=== PATIENT | male | born 1950 | race Caucasian/White ===

== ENCOUNTER → 2021-04-11 15:23 | Outpatient (BNVA) | payer OTHER, SELFPAY | PROVIDERS: PCP Internal Medicine; Visit Provider Nurse Practitioner Family ==

== ENCOUNTER 2021-10-19 08:50 | Outpatient (REF) | payer OTHER, SELFPAY ==
[2021-10-19 09:10] LABS: MANUAL DIFF FLAG NO
[2021-10-19 09:37] LABS: Basophils Absolute Auto 0.1 X10*3/uL (0.0-0.2); Basophils Percent Auto 0.9 % (0-2); Eosinophils Absolute Auto 0.6 X10*3/uL (0.0-0.4); Eosinophils Percent Auto 8.6 % (0-4); Hematocrit 41.3 % (42.0-52.0); Hemoglobin 14.3 g/dl (14.0-18.0); Imm Gran Abs Auto 0.02 X10*3/uL (0.00-0.03); Imm Gran Pct Auto 0.3 % (0.0-0.4); Lymphocytes Absolute Auto 1.4 X10*3/uL (1.2-4.9); Lymphocytes Percent Auto 19.8 % (20-40); Mean Corpuscular HGB Conc 34.6 g/dl (31.0-36.0); Mean Corpuscular Hemoglobin 29.2 pg (27.0-33.0); Mean Corpuscular Volume 84.3 fL (80.0-98.0); Mean Platelet Volume 9.1 fL (9.4-12.4); Monocytes Absolute Auto 1.1 X10*3/uL (0.1-1.2); Monocytes Percent Auto 15.4 % (2-11); Neutrophils Absolute Auto 3.8 x10*3/uL (2.0-8.3); Platelet Count 213 X10*3/uL (160-400); Red Cell Distribution Width 13.4 % (11.0-16.0); White Blood Count 6.8 X10*3/uL (4.8-10.8)
[2021-10-19 10:10] LABS: C Reactive Protein 0.09 mg/dL (< or = 0.50); Estimated Glomerular Filt Rate 53
[2021-10-19 10:26] LABS: Erythrocyte Sedimentation Rate 6 MM/HR (0-15)
[2021-10-24 13:32] LABS: Vitamin D 25-OH, D2 <4 ng/mL; Vitamin D 25-OH, D3 72 ng/mL; Vitamin D 25-OH, Total 72 ng/mL (30-100)
== END 2021-10-19 08:51 | disposition home or self-care (01) ==
LOC: HO.LAB 08:50
PROVIDERS: Visit Provider Internal Medicine Rheumatology
DX: M19.90 Unspecified osteoarthritis, unspecified site (principal); M85.80 Other specified disorders of bone density and structure, unspecified site; Z79.899 Other long term (current) drug therapy
CPT/HCPCS: 36415; 82306; 82565; 85025; 85652; 86140

== ENCOUNTER → 2022-06-25 07:48 | Outpatient (BNVA) | payer OTHER, SELFPAY | PROVIDERS: PCP Internal Medicine; Visit Provider Internal Medicine Rheumatology | DX: Z13.89 Encounter for screening for other disorder (principal) ==

== ENCOUNTER 2022-06-25 09:22 | Outpatient (REF) | payer OTHER, SELFPAY ==
[2022-06-25 10:25] LABS: MANUAL DIFF FLAG NO
[2022-06-25 10:50] LABS: Basophils Absolute Auto 0.1 X10*3/uL (0.0-0.2); Basophils Percent Auto 1.4 % (0-2); Eosinophils Absolute Auto 0.3 X10*3/uL (0.0-0.4); Eosinophils Percent Auto 5.5 % (0-4); Hematocrit 41.9 % (42.0-52.0); Hemoglobin 14.5 g/dl (14.0-18.0); Imm Gran Abs Auto 0.03 X10*3/uL (0.00-0.03); Imm Gran Pct Auto 0.5 % (0.0-0.4); Lymphocytes Absolute Auto 1.3 X10*3/uL (1.2-4.9); Lymphocytes Percent Auto 22.2 % (20-40); Mean Corpuscular HGB Conc 34.6 g/dl (31.0-36.0); Mean Corpuscular Hemoglobin 28.6 pg (27.0-33.0); Mean Corpuscular Volume 82.6 fL (80.0-98.0); Mean Platelet Volume 9.5 fL (9.4-12.4); Monocytes Absolute Auto 0.8 X10*3/uL (0.1-1.2); Monocytes Percent Auto 14.9 % (2-11); Neutrophils Absolute Auto 3.1 x10*3/uL (2.0-8.3); Neutrophils Percent Auto 55.5 % (45-73); Platelet Count 248 X10*3/uL (160-400); Red Blood Count 5.07 X10*6/uL (4.60-5.80); Red Cell Distribution Width 13.3 % (11.0-16.0); White Blood Count 5.6 X10*3/uL (4.8-10.8)
[2022-06-25 11:29] LABS: Alanine Aminotransferase 16 U/L (0-40); Albumin Level 4.1 g/dL (3.5-5.0); Alkaline Phosphatase 80 U/L (39-117); Anion Gap 12 (12-20); Aspartate Amino Transferase 17 U/L (5-37); Bilirubin Total 0.6 mg/dL (0.0-1.0); Blood Urea Nitrogen 19 mg/dL (9-16); C Reactive Protein 0.31 mg/dL (< or = 0.50); Carbon Dioxide 24 mmol/L (22-29); Chloride 109 mmol/L (96-108); Estimated Glomerular Filt Rate > 60; Glucose Random 109 mg/dL (60-115); Potassium 4.4 mmol/L (3.3-5.1); Sodium 141 mmol/L (135-145); Total Protein 6.5 g/dL (6.5-8.0)
[2022-06-25 11:31] LABS: Erythrocyte Sedimentation Rate 7 MM/HR (0-15)
[2022-06-25 11:32] LABS: TSH reflex Free T4 1.66 uIU/mL (0.32-4.0)
[2022-06-30 16:24] LABS: Vitamin D 25-OH, D2 <4 ng/mL; Vitamin D 25-OH, D3 78 ng/mL; Vitamin D 25-OH, Total 78 ng/mL (30-100)
== END 2022-06-25 09:23 | disposition home or self-care (01) ==
LOC: HO.10HDL 09:22
PROVIDERS: Visit Provider Internal Medicine Rheumatology
DX: M85.80 Other specified disorders of bone density and structure, unspecified site (principal); M79.7 Fibromyalgia; Z79.899 Other long term (current) drug therapy
CPT/HCPCS: 36415; 80053; 82306; 84443; 85025; 85652; 86140

== ENCOUNTER 2022-11-22 08:39 | Outpatient (AMB) | payer OTHER, SELFPAY ==
[2022-11-22 08:52] VITALS: BP 114/62; PULSE 61; TEMP 36.6; O2SAT 95; BMI 29.6
--- NOTE | 2022-11-22 08:52 | MHC.OFFVIS ---
Intake Vital Signs 11/22/22 08:52 Height 5 ft 6 in Weight 183 lb 10.321 oz BMI 29.6 BP 114/62 Blood Pressure Location Rt brachial Position Sitting Pulse 61 Pulse Source Pulse Oximeter Temp 97.9 F Temp Source Skin Pulse Oximetry (%) 95 Intake Visit Reasons: oa/fm Intake Note: Pt seen today for OA/FM follow up. C/o pain in all joints and muscles. Has been using diclofenac for hands and it helps. 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 Education Instructor Required: No Accompanied by: Self / Same As Patient Allergies meperidine [From Demerol] Allergy (Severe, Verified 11/22/22 08:56) heart stopped bupropion Adverse Reaction (Severe, Verified 11/22/22 08:56) MS changes Medication List - Last Reconciled 11/22/22 by Valerio Vallejo MD acetaminophen 1,000 mg PO Q6H PRN alendronate 70 mg PO QWEEK amlodipine 10 mg PO DAILY gabapentin 100 mg PO TID prednisone 2.5 mg PO DAILY tizanidine 2 mg PO BEDTIME PRN HPI HPI Comments History of Present Illness Details The patient returns for evaluation of his DISH, PMR, osteopenia and fibromyalgia. His overall muscle pains continue, sometimes accompanied but muscle cramps in the legs at night. He remains on prednisone 2.5 mg daily, alendronate 70 mg once a week, gabapentin 100mg in AM and 200 mg in evening, and acetaminophen 1,000 mg TID prn. He was taking some tizanidine at night but ran out. That seemed to help with the muscle cramps. He remains active in a physical job. [facility] Medical History (Updated 02/15/22 @ 08:47 by Valerio Vallejo MD) Carpal tunnel syndrome on both sides CKD (chronic kidney disease) stage 3, GFR 30-59 ml/min DISH (diffuse idiopathic skeletal hyperostosis) Fibromyalgia Hypertension Inflammatory arthritis care home use of drug Osteopenia Social History Household Members: Spouse Housing: House Are you a primary director day care center to a significant other at home: No Do you presently have visiting nurse or other home services: No 75 years or older and lives alone: No Alcohol intake: never Patient Tobacco Use Status: Former Tobacco user e-Cigarette/Vaping Use: Never Used service: No Current occupational status: employed 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 Negative for appetite change, weight change, fever, chills, malaise Eyes Details: Negative for vision change, dry eyes,headaches and dizziness Card Details: Negative chest pain, edema and syncope Resp Details: Negative for SOB, cough and wheezing GI Details: Negative indigestion/heartburn, nausea, abdominal pain, bowel changes, diarrhea, constipation and bloody stool. Psych Details: Negative for anxiety, depression and stress Tim/Lymph Details: Negative for excessive bruising or bleeding. Physical Exam Vital Signs: Last Vital Signs Temp 97.9 F 11/22/22 08:52 Pulse 61 11/22/22 08:52 BP 114/62 11/22/22 08:52 Pulse Ox 95 11/22/22 08:52 BMI result Body Mass Index 29.6 APPEARANCE: Patient in no acute distress EYES no redness, pupils equal and reactive to light, eyelids normal. No temporal artery tenderness, redness or swelling EXTREMITIES:? No edema, no calf tenderness, normal peripheral pulses. JOINT EXAM: Cervical Spine:.? Lateral flexion slightly painful at 10 degrees with some limitation at that point.? Lateral rotation limited at 45 degrees with some pain.? Some posterior cervical muscle at tenderness. Thoracic Spine:.? No scoliosis.? No tenderness on palpation. Lumbar Spine:.? Alignment normal.? Full range of motion with mild pain at flexion to 70 degrees.? No tenderness.? Straight leg raising is negative. Chest Wall:.? No tenderness, swelling, increased warmth or erythema. Hands:.? Right:? Slight tenderness in all the MCP joints but no swelling.? Mild bony enlargement at the thumb IP, PIP, and DIP joints.? All of these points have slight tenderness.? No flexor tendon triggering, thenar atrophy or sensory loss.? Left:? Slightly tender bony enlargement at the thumb IP, PIP and the IP joints.? The MCPs are also tender but do not have any swelling.? No soft tissue swelling, flexor tendon triggering, thenar atrophy or sensory loss.. Wrists: ? Slight discomfort with flexion and? extension at 75 degrees with some minimal tenderness but no swelling, increased warmth or erythema. Elbows:. Normal pain-free range of motion without tenderness, swelling, increased warmth or erythema. Shoulders:.?? Full range of motion with mild discomfort at the extremes of motion.? Some mild anterior tenderness without adenopathy, abductor, weakness, swelling, increased warmth or erythema. Hips:.? Full range of motion with some buttock pain felt at the extremes of internal and external rotation.? No groin pain with motion. Hip bursa:.? Mild trochanteric tenderness. Knees:.?? Normal pain-free range of motion with mild patellofemoral crepitus.? There is some medial tenderness on the left without effusion.? The right knee has no tenderness, swelling, increased warmth or erythema.? Ankles:.? Normal pain-free range of motion without tenderness, swelling, increased warmth or erythema. Feet:? There is mild tenderness in the instep and in all the MTPs.? There is slight bony enlargement at the 1st MTP with some minimal hallux valgus deformity.? No soft tissue swelling, redness or warmth. Tender points:? Mild tenderness to digital palpation at the trapezius, second rib, lateral epicondyle, knees, greater trochanter area bilaterally. 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 Restarted 09/2021 11.2% increase in bone density measured at the lumbar spine. 07/2017 DEXA: 3.6% increase in bone density is measured at the left hip compared to 09/15/2012. 10/2021: bone density dropped again, alendronate restarted Code(s): M85.80 - Other specified disorders of bone density and structure, unspecified site (4) DISH (diffuse idiopathic skeletal hyperostosis): Comment: Seen on T spine films Code(s): M48.10 - Ankylosing hyperostosis [[place]], site unspecified (5) Inflammatory arthritis: Comment: Wrist, shoulder, back pains; no joint swelling; feels better on low dose prednisone seronegative - ?PMR Code(s): M19.90 - Unspecified osteoarthritis, unspecified site Plan He seems about the same. PMR symptoms probably are suppressed and the remainder of the pains are from DISH related OA and fibromyalgia. In June the ESR and CRP were.We normal. There is some OA in the hands. He tolerates the alendronate for the osteopenia. I will renew the tizanidine. Other meds will continue as above. We will schedule a follow up in 5 months. Medications: Changed From tizanidine start with 1/2 pill as medication can be sedating 2 mg PO BEDTIME PRN 30 tabs 0RF muscle spasticity M79.7 - Fibromyalgia To tizanidine 2 mg PO BEDTIME PRN 30 tabs 3RF muscle spasticity M79.7 - Fibromyalgia Coding Level of Care Code Est Pt Level 3 (40124) Diagnoses care home use of drug Z79.899 Fibromyalgia M79.7 Osteopenia M85.80 DISH (diffuse idiopathic skeletal hyperostosis) M48.10 Inflammatory arthritis M19.90
== END 2022-11-22 09:27 | disposition home or self-care (01) ==
PROVIDERS: PCP Internal Medicine; Visit Provider Internal Medicine Rheumatology
DX: Z79.899 Other long term (current) drug therapy (principal); M79.7 Fibromyalgia; M85.80 Other specified disorders of bone density and structure, unspecified site; M48.10 Ankylosing hyperostosis [Forestier], site unspecified; M19.90 Unspecified osteoarthritis, unspecified site
CPT/HCPCS: 99213

== ENCOUNTER → 2022-11-22 08:39 | Outpatient (BNVA) | payer OTHER, SELFPAY | PROVIDERS: PCP Internal Medicine; Visit Provider Internal Medicine Rheumatology ==

== ENCOUNTER 2023-03-27 07:51 | Outpatient (REF) | payer OTHER, SELFPAY ==
[2023-03-27 11:14] LABS: MANUAL DIFF FLAG NO
[2023-03-27 11:57] LABS: C Reactive Protein 0.62 mg/dL (< or = 0.50)
[2023-03-27 12:02] LABS: Basophils Absolute Auto 0.1 X10*3/uL (0.0-0.2); Basophils Percent Auto 0.7 % (0-2); Eosinophils Absolute Auto 0.5 X10*3/uL (0.0-0.4); Eosinophils Percent Auto 6.7 % (0-4); Hematocrit 41.8 % (42.0-52.0); Hemoglobin 14.3 g/dl (14.0-18.0); Imm Gran Abs Auto 0.02 X10*3/uL (0.00-0.03); Imm Gran Pct Auto 0.3 % (0.0-0.4); Lymphocytes Absolute Auto 1.3 X10*3/uL (1.2-4.9); Mean Corpuscular HGB Conc 34.2 g/dl (31.0-36.0); Mean Corpuscular Hemoglobin 28.9 pg (27.0-33.0); Mean Corpuscular Volume 84.4 fL (80.0-98.0); Mean Platelet Volume 9.5 fL (9.4-12.4); Monocytes Percent Auto 14.3 % (2-11); Neutrophils Absolute Auto 4.2 x10*3/uL (2.0-8.3); Platelet Count 256 X10*3/uL (160-400); Red Blood Count 4.95 X10*6/uL (4.60-5.80); Red Cell Distribution Width 13.5 % (11.0-16.0); White Blood Count 7.1 X10*3/uL (4.8-10.8)
[2023-03-27 12:35] LABS: Erythrocyte Sedimentation Rate 6 MM/HR (0-15)
== END 2023-03-27 07:52 | disposition home or self-care (01) ==
LOC: HO.HMGCLDS 07:51
PROVIDERS: Visit Provider Internal Medicine Rheumatology
DX: M19.90 Unspecified osteoarthritis, unspecified site (principal); Z79.899 Other long term (current) drug therapy
CPT/HCPCS: 36415; 85025; 85652; 86140

== ENCOUNTER 2023-04-25 09:21 | Outpatient (AMB) | payer OTHER, SELFPAY ==
[2023-04-25 09:39] VITALS: BP 140/72; PULSE 54; O2SAT 96; BMI 29.4
--- NOTE | 2023-04-25 09:39 | MHC.OFFVIS ---
Intake Vital Signs 04/25/23 09:39 Height 5 ft 6 in Weight 182 lb 1.629 oz BMI 29.4 BP 140/72 H Blood Pressure Location Lt brachial Position Sitting Pulse 54 Pulse Source Pulse Oximeter Pulse Oximetry (%) 96 Oxygen Delivery Method Room Air Intake Visit Reasons: DISH/PMR Intake Note: Patient present today for DISH/PMR follow up visit. Hearing Aid Assistant Required: No Accompanied by: Self / Same As Patient Allergies meperidine [From Demerol] Allergy (Severe, Verified 04/25/23 09:43) heart stopped bupropion Adverse Reaction (Severe, Verified 04/25/23 09:43) MS changes Medication List - Last Reconciled 04/25/23 by Valerio Vallejo MD acetaminophen 1,000 mg PO Q6H PRN alendronate 70 mg PO QWEEK amlodipine 10 mg PO DAILY cholecalciferol (vitamin D3) 250 mcg PO QWEEK gabapentin 100 mg PO TID prednisone 5 mg (2 x 2.5 mg) PO DAILY tizanidine 2 mg PO BEDTIME PRN HPI HPI Comments History of Present Illness Details The patient returns for evaluation of his PMR, fibromyalgia, and DISH. He had called us last month with the flare-up of pains and numbness in his hands. The numbness seems to radiate from the hands of proximally to the shoulder areas. He had been on 2.5 mg daily prednisone. We increased it to 2.5 b.i.d. and the symptoms improved. He remains on gabapentin taking 100 mg the morning and 200 mg at night. Higher daytime doses interferes with his functioning because of sedation. He does have some tizanidine he occasionally uses at night. He is also on acetaminophen 1 g a couple times a day if needed. He takes alendronate 70 mg once a week for osteoporosis. He has been told in the past he is carpal tunnel syndrome. He does not feel like he can take time off from work or care of his in order to get surgery. He has some element of CKD so we avoid NSAIDs and him. 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 CKD (chronic kidney disease) stage 3, GFR 30-59 ml/min Hypertension Fibromyalgia Osteopenia DISH (diffuse idiopathic skeletal hyperostosis) Carpal tunnel syndrome on both sides Inflammatory arthritis Social History Household Members: Spouse Housing: House Are you a primary managed care provider to a significant other at home: No Do you presently have visiting nurse or other home services: No 75 years or older and lives alone: No Alcohol intake: never Patient Tobacco Use Status: Former Tobacco user e-Cigarette/Vaping Use: Never Used service: No Current occupational status: employed 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 Card Details: He was missing his amlodipine for while but now has refills. Negative chest pain, edema and syncope Resp Details: Negative for SOB, cough and wheezing GI Details: Negative indigestion/heartburn, nausea, abdominal pain, bowel changes, diarrhea, constipation and bloody stool. Neuro Details: Negative for epilepsy, palsy, stroke, changes in speech, tingling and weakness Endo Details: Negative for polyuria and polydypsia Tim/Lymph Details: Negative for excessive bruising or bleeding. Physical Exam Vital Signs: Last Vital Signs Pulse 54 04/25/23 09:39 BP 140/72 H 04/25/23 09:39 Pulse Ox 96 04/25/23 09:39 Oxygen Delivery Method Room Air 04/25/23 09:39 BMI result Body Mass Index 29.4 APPEARANCE: Patient in no acute distress EYES no redness, pupils equal and reactive to light, eyelids normal EYES no redness, pupils equal and reactive to light, eyelids normal. No temporal artery tenderness, redness or swelling EXTREMITIES:? No edema, no calf tenderness, normal peripheral pulses. JOINT EXAM: Cervical Spine:.? Lateral flexion slightly painful at 10 degrees with some limitation at that point.? Lateral rotation limited at 45 degrees with some pain.? Some posterior cervical muscle at tenderness. Thoracic Spine:.? No scoliosis.? No tenderness on palpation. Lumbar Spine:.? Alignment normal.? Full range of motion with mild pain at flexion to 70 degrees.? No tenderness.? Straight leg raising is negative. Chest Wall:.? No tenderness, swelling, increased warmth or erythema. Hands:.? Right:? No tenderness or swelling in the MCP joints.? Mild bony enlargement at the thumb IP, PIP, and DIP joints.? All of these points have slight tenderness.? No flexor tendon triggering, thenar atrophy or sensory loss.? Left:? Slightly tender bony enlargement at the thumb IP, PIP and the IP joints.? The MCPs are are not tender or swollen. Other areas in the hand have no soft tissue swelling, flexor tendon triggering, thenar atrophy or sensory loss.. Wrists: ? Slight discomfort with flexion and? extension at 75 degrees with some minimal tenderness but no swelling, increased warmth or erythema. Negative Phalen's and Tinel signs. Elbows:. Normal pain-free range of motion without tenderness, swelling, increased warmth or erythema. Shoulders:.?? Full range of motion with mild discomfort at the extremes of motion.? Some mild anterior tenderness without adenopathy, abductor, weakness, swelling, increased warmth or erythema. Hips:.? Full range of motion with some buttock pain felt at the extremes of internal and external rotation.? No groin pain with motion. Hip bursa:.? Mild trochanteric tenderness. Knees:.?? Normal pain-free range of motion with mild patellofemoral crepitus.? There is some medial tenderness on the left without effusion.? The right knee has no tenderness, swelling, increased warmth or erythema.? Ankles:.? Normal pain-free range of motion without tenderness, swelling, increased warmth or erythema. Feet:? There is mild tenderness in the instep and in all the MTPs.? There is slight bony enlargement at the 1st MTP with some minimal hallux valgus deformity.? No soft tissue swelling, redness or warmth. Tender points:? Mild tenderness to digital palpation at the trapezius, second rib, lateral epicondyle, knees, greater trochanter area bilaterally. Results Reviewed Results Reviewed: Laboratory Tests 03/27/23 07:59 WBC 7.1 Hgb 14.3 ESR 6 C-Reactive Protein 0.62 H Assessment & Plan Assessment & Plan (1) Fibromyalgia: Code(s): M79.7 - Fibromyalgia (2) Osteopenia: Comment: October 2012 BMD FRAX estimate: 32% for fracture, 3.5% for hip fracture over 10 years Alendronate started 10/23, taken through October 2018. Restarted 09/2021 11.2% increase in bone density measured at the lumbar spine. 07/2017 DEXA: 3.6% increase in bone density is measured at the left hip compared to 09/15/2012. 10/2021: bone density dropped again, alendronate restarted Code(s): M85.80 - Other specified disorders of bone density and structure, unspecified site (3) Carpal tunnel syndrome on both sides: Comment: EMG/NCT 02/25: severe on right, moderate to severe on left Declined surgery Code(s): G56.03 - Carpal tunnel syndrome, bilateral upper limbs (4) Inflammatory arthritis: Comment: Wrist, shoulder, back pains; no joint swelling; feels better on low dose prednisone seronegative - ?PMR Code(s): M19.90 - Unspecified osteoarthritis, unspecified site (5) DISH (diffuse idiopathic skeletal hyperostosis): Comment: Seen on T spine films Code(s): M48.10 - Ankylosing hyperostosis [[place]], site unspecified Plan He had some flare-up of pain mostly in the hands and shoulders. This was accompanied by paresthesias so it is suggestive that he might have exacerbate his carpal tunnel symptoms. We again discussed possible surgical treatment for this but he declined. He seems more comfortable with the slightly higher prednisone dose so he probably does have some degree of PMR or another type of inflammatory arthritis. Prominent symptoms in the back and neck in the past as well as radiographic changes work more consistent with DISH. He will continue with the gabapentin. Because of his osteopenia he needs to stay on the alendronate given his reliance on the prednisone. A follow-up in 5 months will be arranged. Coding Level of Care Code Est Pt Level 4 (41993) Diagnoses Fibromyalgia M79.7 Osteopenia M85.80 Carpal tunnel syndrome on both sides G56.03 Inflammatory arthritis M19.90 DISH (diffuse idiopathic skeletal hyperostosis) M48.10
== END 2023-04-25 10:28 | disposition home or self-care (01) ==
PROVIDERS: PCP Internal Medicine; Visit Provider Internal Medicine Rheumatology
DX: M79.7 Fibromyalgia (principal); M85.80 Other specified disorders of bone density and structure, unspecified site; G56.03 Carpal tunnel syndrome, bilateral upper limbs; M19.90 Unspecified osteoarthritis, unspecified site; M48.10 Ankylosing hyperostosis [Forestier], site unspecified
CPT/HCPCS: 99214

== ENCOUNTER → 2023-04-25 09:21 | Outpatient (BNVA) | payer OTHER, SELFPAY | PROVIDERS: PCP Internal Medicine; Visit Provider Internal Medicine Rheumatology ==

== ENCOUNTER 2023-09-24 08:24 | Outpatient (AMB) | payer MEDICARE, SELFPAY ==
[2023-09-24 08:37] VITALS: BP 120/64; PULSE 59; O2SAT 98; BMI 27.1
--- NOTE | 2023-09-24 08:37 | A.OFFVIS_ITS ---
Vital Signs 09/24/23 08:37 Height 5 ft 6 in Weight 167 lb 15.876 oz BMI 27.1 BP 120/64 Blood Pressure Location Rt brachial Position Sitting Pulse 59 Pulse Source Pulse Oximeter Pulse Oximetry (%) 98 Oxygen Delivery Method Room Air Intake Visit Reasons: PMR/DISH/LVM Intake Note: Patient last seen by Dr Vallejo 04/25/23 presents today for follow up. He reports left knee pain and swelling. Works FT at a [employer] line, wears brace for support. Reports flare up since last visit, was seen at urgent care in [place] and [facility]. Xrays were done and told he had moderate arthritis, currently using prednisone 2.5mg bid Manager Research Required: No Accompanied by: Self / Same As Patient Allergies meperidine [From Demerol] Allergy (Severe, Verified 09/24/23 08:48) heart stopped bupropion Adverse Reaction (Severe, Verified 09/24/23 08:48) MS changes Medication List - Last Reconciled 09/24/23 by Ozzie Anguiano MD acetaminophen 1,000 mg PO Q6H PRN alendronate 70 mg PO QWEEK amlodipine 10 mg PO DAILY cholecalciferol (vitamin D3) 250 mcg PO QWEEK gabapentin 100 mg PO TID prednisone 2.5 mg PO BID tizanidine 2 mg PO BEDTIME PRN HPI Comments Details: 73-year-old male with PMR, fibromyalgia and DISH returns for follow-up. States that over the last 2 months or so he has been having a flare-up. Cup 1 day 2 months ago with left knee pain and swelling. Without any preceding trauma. He went to urgent care who prescribed him a brace he then followed up with an orthopedist, he had a steroid injection which was at least 50% helpful. The left knee pain has improved but he continues to use the brace. Continues to have pain in his hands, wrists, shoulders and ankles. Recently he injured his right wrist while working on his 's car. He remains on prednisone 2.5 mg Twice daily. States that he has not consistent with taking the alendronate. Most recent history by Dr. Vallejo 04/2023: The patient returns for evaluation of his PMR, fibromyalgia, and DISH. He had called us last month with the flare-up of pains and numbness in his hands. The numbness seems to radiate from the hands of proximally to the shoulder areas. He had been on 2.5 mg daily prednisone. We increased it to 2.5 b.i.d. and the symptoms improved. He remains on gabapentin taking 100 mg the morning and 200 mg at night. Higher daytime doses interferes with his functioning because of sedation. He does have some tizanidine he occasionally uses at night. He is also on acetaminophen 1 g a couple times a day if needed. He takes alendronate 70 mg once a week for osteoporosis. He has been told in the past he is carpal tunnel syndrome. He does not feel like he can take time off from work or care of his in order to get surgery. He has some element of CKD so we avoid NSAIDs and him. 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 CKD (chronic kidney disease) stage 3, GFR 30-59 ml/min Hypertension Fibromyalgia Osteopenia DISH (diffuse idiopathic skeletal hyperostosis) Carpal tunnel syndrome on both sides Inflammatory arthritis Social History Household Members: Spouse Housing: House Are you a primary care director to a significant other at home: No Do you presently have visiting nurse or other home services: No 75 years or older and lives alone: No Alcohol intake: never Patient Tobacco Use Status: Former Tobacco user e-Cigarette/Vaping Use: Never Used service: No Current occupational status: employed 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[place] [facility] [place] arthralgias, Reports joint swelling and Reports stiffness Skin/Breast Reports wounds Physical Exam Vital Signs: Last Vital Signs Pulse 59 09/24/23 08:37 BP 120/64 09/24/23 08:37 Pulse Ox 98 09/24/23 08:37 Oxygen Delivery Method Room Air 09/24/23 08:37 BMI result Body Mass Index 27.1 Const General: cooperative, healthy appearing and comfortable Nutritional Appearance: overweight Orientation/consciousness: patient oriented x3 Limitations: no limitations HEENT Head: Yes normocephalic and Yes atraumatic Resp Effort & Inspection: normal respiratory effort and able to speak in complete sentences Auscultation: clear to auscultation bilaterally Cardio Rate: regular rate Rhythm: regular rhythm Neuro General: patient oriented x3 Extrem Other: Right hand wrapped in a bandage Kyphosis Hamzah test 10 to 12.5 cm Almost normal lateral flexion test Normal range of motion of neck Significant osteoarthritic changes of both hands Left wrist pain with full extension No elbow pain with full range of motion bilaterally Rotator cuff provocative maneuvers bilaterally Negative Speed's test bilaterally Negative straight leg raise test bilaterally Equivocal ASHLEY test on the right Bilateral ankle tenderness without significant swelling Assessment & Plan Assessment & Plan (1) Inflammatory arthritis: Comment: Wrist, shoulder, back pains; no joint swelling; feels better on low dose prednisone seronegative - ?PMR diagnosed around 2011 Code(s): M19.90 - Unspecified osteoarthritis, unspecified site Category: Medical Plan: This is a 73-year-old male with suspected PMR with possible small joint involvement as well as DISH and fibromyalgia who presents for follow-up. This is his 1st visit with me. He used to follow-up with Dr. Vallejo. He remains on prednisone 2.5 mg Twice daily. Continues to have intermittent flare-ups of joint pain and swelling. Most recently had left knee pain and swelling which was injected by Orthopedics with improvement. For now continue prednisone 2.5 mg Twice daily Will recheck comprehensive serology before next visit in 4 months. Check x-rays of involved joints (2) Osteopenia: Comment: October 2012 BMD FRAX estimate: 32% for fracture, 3.5% for hip fracture over 10 years Alendronate started 10/23, taken through October 2018. Restarted 09/2021 11.2% increase in bone density measured at the lumbar spine. 07/2017 DEXA: 3.6% increase in bone density is measured at the left hip compared to 09/15/2012. 10/2021: bone density dropped again, alendronate restarted Code(s): M85.80 - Other specified disorders of bone density and structure, unspecified site Category: Medical Plan: Not consistently compliant with alendronate. Will recheck a bone density scan Before next visit in 4 months (3) Fibromyalgia: Code(s): M79.7 - Fibromyalgia Category: Medical Plan I spent 36 minutes reviewing patient's chart, evaluating patient, ordering diagnostic workup, counseling patient and documenting in the chart Orders: Orders Complete Blood Count Auto Diff Today M32.9 - Systemic lupus erythematosus, unspecified Hepatitis A,B,C Profile Today Z11.59 - Encounter for screening for other viral diseases T Spot TB Today Z11.7 - Encounter for testing for latent tuberculosis infection Anti DNA DS Antibody Today M32.9 - Systemic lupus erythematosus, unspecified DNA Double Stranded-Crithidia Today M32.9 - Systemic lupus erythematosus, unspecified Protein Creatinine Ratio, Ur Today M32.9 - Systemic lupus erythematosus, unspecified UA w Microscopic Today M32.9 - Systemic lupus erythematosus, unspecified Rheumatoid Factor 4 Months M1.90 - Unspecified osteoarthritis, unspecified site HLA B27 4 Months M45.9 - Ankylosing spondylitis of unspecified sites in spine XR hand wrist RT 4 Months M1.90 - Unspecified osteoarthritis, unspecified site XR ankle RT min 3V 4 Months M1.90 - Unspecified osteoarthritis, unspecified site Comprehensive Met. Panel Today M32.9 - Systemic lupus erythematosus, unspecified C Reactive Protein Today M32.9 - Systemic lupus erythematosus, unspecified Erythrocyte Sedimentation Rate Today M32.9 - Systemic lupus erythematosus, unspecified Immunofixation Pnl, Serum Today M32.9 - Systemic lupus erythematosus, unspecified DUNIA Reflex Titer and Pattern Today M32.9 - Systemic lupus erythematosus, unsp ecified Anti Extractable Nuclear Ag Today M32.9 - Systemic lupus erythematosus, unspecified Complement C3 Today M32.9 - Systemic lupus erythematosus, unspecified Complement C4 Today M32.9 - Systemic lupus erythematosus, unspecified Sjogren's Antibodies Today M32.9 - Systemic lupus erythematosus, unspecified Cyclic Citrullinated Peptide 4 Months M1.90 - Unspecified osteoarthritis, unspecified site XR thoracic spine 3V 4 Months M1.90 - Unspecified osteoarthritis, unspecified site XR lumbar spine 4V min 4 Months M1.90 - Unspecified osteoarthritis, unspecified site XR sacroiliac joint min 3V 4 Months M1.90 - Unspecified osteoarthritis, unspecified site XR hand wrist LT 4 Months M1. - Unspecified osteoarthritis, unspecified site XR ankle LT min 3V 4 Months M1. - Unspecified osteoarthritis, unspecified site XR DEXA axial skeleton 4 Months M85.80 - Other specified disorders of bone density and structure, unspecified site Coding Level of Care Code Est Pt Level 4 (48029) Diagnoses Inflammatory arthritis Osteopenia M85.80 Fibromyalgia M79.7
== END 2023-09-24 09:10 | disposition home or self-care (01) ==
LOC: HO.RHE 08:24
PROVIDERS: PCP Internal Medicine; Visit Provider Student in an Organized Health Care Education/Training Program
DX: M19.90 Unspecified osteoarthritis, unspecified site (principal); M85.80 Other specified disorders of bone density and structure, unspecified site; M79.7 Fibromyalgia
CPT/HCPCS: 99214

== ENCOUNTER → 2023-09-24 08:24 | Outpatient (BNVA) | payer MEDICARE, SELFPAY | PROVIDERS: PCP Internal Medicine; Visit Provider Student in an Organized Health Care Education/Training Program | DX: M19.90 Unspecified osteoarthritis, unspecified site (principal); M85.80 Other specified disorders of bone density and structure, unspecified site; M79.7 Fibromyalgia; Z79.52 Long term (current) use of systemic steroids | CPT/HCPCS: 99212 ==

== ENCOUNTER 2024-01-16 08:44 | Outpatient (REF) | payer MEDICARE, SELFPAY ==
--- NOTE | ~2024-01-16 | MM_ITS ---
EXAMINATION: BONE DENSITOMETRY CLINICAL INDICATION: Other specified disorders of bone density and structure, unspecified site. COMPARISON: This is the patient's baseline examination. TECHNIQUE: Using a [employer] DXA System (software version: 13.1) manufactured by [employer], dual-energy x-ray absorptiometry was performed of the lumbar spine and left hip. The images are of good technical quality. Summary results are attached. FINDINGS: AP SPINE L2-L3 (excluding L1 and L4): The data of L1-L4 has been changed to exclude the L1 and L4 vertebral bodies, because degenerative sclerosis at these levels may cause overestimation of lumbar spine density. BMD 1.178 g/cm2, Z-score 0.0, T-score -0.5, normal. LEFT FEMUR, NECK: BMD 0.878 g/cm2, Z-score -0.2, T-score -1.5, osteopenia. LEFT FEMUR, TOTAL: BMD 0.928 g/cm2, Z-score -0.4, T-score -1.2, osteopenia. IDENTIFIED RISK FACTORS: History of adult fracture. Osteoporosis. Renal disease. Height loss. Low calcium intake. Parental hip fracture. Chronic glucocorticoids. HISTORY OF FRACTURE: Other (ribs). MEDICATIONS: Vitamin D. Bisphosphonates. MM/XR DEXA axial skeleton IMPRESSION: 1. DIAGNOSIS: Osteopenia based on the lowest T-score value of -1.5 in the femoral neck applying World Health Organization criteria. 2. 10-YEAR FRACTURE RISK PREDICTION, FRAX: Not performed in this patient on estrogen or bone building treatments. 3. Treatment Recommendations: NOF guidelines recommend consideration for treatment in postmenopausal women and men age 50 and older presenting with the following: -A hip or vertebral (clinical or morphometric) fracture. -T-score less than or equal to -2.5 at the femoral neck or spine after appropriate evaluation to exclude secondary causes. -Low bone mass at the hip or spine and a 10-year fracture probability by FRAX of greater than or equal to 3% for hip fracture or greater than or equal to 20% for major osteoporotic fracture based on the [place] adapted WHO algorithm. 4. Other Recommendations: All treatment decisions require clinical judgment and consideration of individual patient factors, including patient preferences, comorbidities, previous drug use, risk factors not captured in the FRAX model (e.g. frailty, falls, vitamin D deficiency, increased bone turnover, interval significant decline in bone density) and possible under or overestimation of fracture risk by FRAX. Additional medical evaluation for secondary cause of low bone mineral density may be appropriate. FUTURE SCAN RECOMMENDATION: People with diagnosed cases of osteoporosis or at high risk for fracture should have regular bone mineral density tests. For patients eligible for Medicare, routine testing is allowed once every 2 years. The testing frequency can be increased to one year for patients who have rapidly progressing disease, those who are receiving or discontinuing medical therapy to restore bone mass, or have additional risk factors. Electronically signed by: Carlton Pineda MD 01/22/2024 11:52 AM EDT
== END 2024-01-16 08:45 | disposition home or self-care (01) ==
LOC: HO.MAMMO 08:44
PROVIDERS: PCP Internal Medicine; Visit Provider Student in an Organized Health Care Education/Training Program
DX: Z13.820 Encounter for screening for osteoporosis (principal); M85.852 Other specified disorders of bone density and structure, left thigh
CPT/HCPCS: 77080

== ENCOUNTER 2024-01-22 08:24 | Outpatient (AMB) | payer MEDICARE, MEDICAID, SELFPAY ==
[2024-01-22 08:28] VITALS: BP 118/62; PULSE 68; O2SAT 100; BMI 26.4
--- NOTE | 2024-01-22 08:28 | A.OFFVIS_ITS ---
Vital Signs 01/22/24 08:28 Height 5 ft 6 in Weight 163 lb 5.8 oz BMI 26.4 BP 118/62 Blood Pressure Location Rt brachial Pulse 68 Pulse Source Pulse Oximeter Pulse Oximetry (%) 100 Oxygen Delivery Method Room Air Intake Visit Reasons: PMR/Seroneg Intake Note: Patient last seen by Ozzie Anguiano on 09/24/23. Presents today for PMR/Seroneg follow up and labs/XR's test results. Patient did not get his labs done, bone density is not read yet. Patient states his left knee is bothering him today. Allergies meperidine [From Demerol] Allergy (Severe, Verified 01/22/24 08:32) heart stopped bupropion Adverse Reaction (Severe, Verified 09/24/23 08:48) MS changes Medication List - Last Reconciled 01/22/24 by Ozzie Anguiano MD acetaminophen 1,000 mg PO Q6H PRN alendronate 70 mg PO QWEEK amlodipine 10 mg PO DAILY cholecalciferol (vitamin D3) 250 mcg PO QWEEK gabapentin 100 mg PO TID prednisone 2.5 mg PO BID tizanidine 2 mg PO BEDTIME PRN HPI Comments Details: 73-year-old male with PMR, fibromyalgia and DISH returns for follow-up. States that he is doing about the same overall. Remains on prednisone 2.5 mg Twice daily. States that he gets intermittent left-sided lower back pain associated with cramping of his left lower extremity. This happens mostly at length. States that when he misses a prednisone dose he does feel pain and stiffness in his hands. He had the bone density scan done, it has not been read yet and did not get the blood work done Most recent history by Dr. Vallejo 04/2023: The patient returns for evaluation of his PMR, fibromyalgia, and DISH. He had called us last month with the flare-up of pains and numbness in his hands. The numbness seems to radiate from the hands of proximally to the shoulder areas. He had been on 2.5 mg daily prednisone. We increased it to 2.5 b.i.d. and the symptoms improved. He remains on gabapentin taking 100 mg the morning and 200 mg at night. Higher daytime doses interferes with his functioning because of sedation. He does have some tizanidine he occasionally uses at night. He is also on acetaminophen 1 g a couple times a day if needed. He takes alendronate 70 mg once a week for osteoporosis. He has been told in the past he is carpal tunnel syndrome. He does not feel like he can take time off from work or care of his in order to get surgery. He has some element of CKD so we avoid NSAIDs and him. [facility] Medical History assisted use of drug CKD (chronic kidney disease) stage 3, GFR 30-59 ml/min Hypertension Fibromyalgia Osteopenia DISH (diffuse idiopathic skeletal hyperostosis) Carpal tunnel syndrome on both sides Inflammatory arthritis Social History Household Members: Spouse Housing: House Are you a primary critical care specialist to a significant other at home: No Do you presently have visiting nurse or other home services: No 75 years or older and lives alone: No Alcohol intake: never Patient Tobacco Use Status: Former Tobacco user e-Cigarette/Vaping Use: Never Used service: No Current occupational status: employed 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 Review of [place] [facility] [place] back pain, Reports arthralgias and Reports stiffness Physical Exam Vital Signs: Last Vital Signs Pulse 68 01/22/24 08:28 BP 118/62 01/22/24 08:28 Pulse Ox 100 01/22/24 08:28 Oxygen Delivery Method Room Air 01/22/24 08:28 BMI result Body Mass Index 26.4 Const General: cooperative, healthy appearing and comfortable Nutritional Appearance: overweight Orientation/consciousness: patient oriented x3 Limitations: no limitations HEENT Head: Yes normocephalic and Yes atraumatic Resp Effort & Inspection: normal respiratory effort and able to speak in complete sentences Neuro General: patient oriented x3 Extrem Other: Kyphosis Hamzah test 10 to 12.5 cm Almost normal lateral flexion test Normal range of motion of neck Significant osteoarthritic changes of both hands, no swelling Left wrist pain with full extension No elbow pain with full range of motion bilaterally Negative Rotator cuff provocative maneuvers bilaterally Negative Speed's test bilaterally Negative straight leg raise test bilaterally Equivocal ASHLEY test on the right Significant bilateral knee crepitus Assessment & Plan Assessment & Plan (1) Inflammatory arthritis: Comment: Wrist, shoulder, back pains; no joint swelling; feels better on low dose prednisone seronegative - ?PMR diagnosed around 2011 Code(s): M19.90 - Unspecified osteoarthritis, unspecified site Category: Medical Plan: This is a 73-year-old male with suspected PMR with possible small joint involvement as well as DISH and fibromyalgia who presents for follow-up. This is his 2nd visit with me. He used to follow-up with Dr. Vallejo. He remains on prednisone 2.5 mg Twice daily. Continues to have intermittent flare-ups of joint pain and swelling. Last visit I had ordered comprehensive serology and x- rays to screen for better understand his condition. Patient did not do the blood work or the x-rays. Advised patient to get the requested diagnostic workup done and we will go over it next visit Follow-up in 6-7 weeks (2) Osteopenia: Comment: October 2012 BMD FRAX estimate: 32% for fracture, 3.5% for hip fracture over 10 years Alendronate started 10/23, taken through October 2018. Restarted 09/2021 11.2% increase in bone density measured at the lumbar spine. 07/2017 DEXA: 3.6% increase in bone density is measured at the left hip compared to 09/15/2012. 10/2021: bone density dropped again, alendronate restarted Code(s): M85.80 - Other specified disorders of bone density and structure, unspecified site Category: Medical Plan: Not consistently compliant with alendronate. A repeat DEXA scan was done. Has not been read yet (3) Fibromyalgia: Code(s): M79.7 - Fibromyalgia Category: Medical Plan I spent 16 minutes reviewing patient's chart, evaluating patient, ordering diagnostic workup, counseling patient and documenting in the chart Coding Level of Care Code Est Pt Level 3 (61921) Diagnoses Inflammatory arthritis M19.90 Osteopenia M85.80 Fibromyalgia M79.7
== END 2024-01-22 08:52 | disposition home or self-care (01) ==
PROVIDERS: PCP Internal Medicine; Visit Provider Student in an Organized Health Care Education/Training Program
DX: M19.90 Unspecified osteoarthritis, unspecified site (principal); M85.80 Other specified disorders of bone density and structure, unspecified site; M79.7 Fibromyalgia
CPT/HCPCS: 99213

== ENCOUNTER 2024-01-22 08:24 | Outpatient (REF) | payer MEDICARE, OTHER, SELFPAY ==
--- NOTE | ~2024-01-22 | XR_ITS ---
EXAMINATION: XR HAND/WRIST, RIGHT XR HAND/WRIST, LEFT CLINICAL INFORMATION: Unspecified osteoarthritis. COMPARISON: None available. TECHNIQUE: PA, lateral, oblique, and scaphoid views of the each hand and wrist. FINDINGS: RIGHT HAND/WRIST: [id number] first CMC osteoarthritis with joint space narrowing, marginal osteophytes, and subchondral cystic change. More moderate osteoarthritis at the thumb and long finger MCP joints as well as the thumb interphalangeal joint and multiple DIP joints. More mild osteoarthritis at the triscaphe joint and other interphalangeal joints. No fractures. Bone mineralization is normal. No erosions or significant periostitis. Soft tissues are unremarkable. No chondrocalcinosis. LEFT HAND/WRIST: Multifocal osteoarthritis is moderate in severity at the first CMC, first through third MCP, thumb interphalangeal, and long finger DIP joints. More mild multifocal osteoarthritis is present in other interphalangeal joints, the triscaphe joint, and the radiocarpal joint. No erosions. Bone mineralization is normal. Soft tissues are unremarkable. No chondrocalcinosis. No fractures. 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 No evidence of inflammatory arthropathy. Electronically signed by: Alejandro Castaneda MD 01/28/2024 11:49 AM EDT
--- NOTE | ~2024-01-22 | XR_ITS ---
EXAMINATION: XR HAND/WRIST, RIGHT XR HAND/WRIST, LEFT CLINICAL INFORMATION: Unspecified osteoarthritis. COMPARISON: None available. TECHNIQUE: PA, lateral, oblique, and scaphoid views of the each hand and wrist. FINDINGS: RIGHT HAND/WRIST: [id number] first CMC osteoarthritis with joint space narrowing, marginal osteophytes, and subchondral cystic change. More moderate osteoarthritis at the thumb and long finger MCP joints as well as the thumb interphalangeal joint and multiple DIP joints. More mild osteoarthritis at the triscaphe joint and other interphalangeal joints. No fractures. Bone mineralization is normal. No erosions or significant periostitis. Soft tissues are unremarkable. No chondrocalcinosis. LEFT HAND/WRIST: Multifocal osteoarthritis is moderate in severity at the first CMC, first through third MCP, thumb interphalangeal, and long finger DIP joints. More mild multifocal osteoarthritis is present in other interphalangeal joints, the triscaphe joint, and the radiocarpal joint. No erosions. Bone mineralization is normal. Soft tissues are unremarkable. No chondrocalcinosis. No fractures. 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 No evidence of inflammatory arthropathy. Electronically signed by: Alejandro Castaneda MD 01/28/2024 11:49 AM EDT
--- NOTE | ~2024-01-22 | XR_ITS ---
EXAMINATION: XR ANKLE, RIGHT XR ANKLE, LEFT CLINICAL INFORMATION: Osteoarthritis. COMPARISON: None TECHNIQUE: AP, lateral, and mortise views of each ankle. FINDINGS: RIGHT ANKLE: Soft tissue swelling at the ankle. No fracture or malalignment. Ankle mortise is symmetric. No appreciable talar osteochondral injuries. Bone mineralization is normal. Small enthesopathic spurs are present at the Achilles tendon insertion and plantar fascial origin on the calcaneus. LEFT ANKLE: Minimal soft tissue swelling at the ankle. Alignment is appropriate. No fractures. Ankle mortise is symmetric. Joint spaces are normal. No joint effusion. Moderate sized enthesopathic spurs are present at the Achilles tendon insertion and plantar fascial origin on the calcaneus. XR/XR ankle RT min 3V IMPRESSION: 1. No acute osseous findings at the ankles. 2. Bilateral calcaneal spurs. Electronically signed by: Alejandro Castaneda MD 01/28/2024 11:49 AM EDT
--- NOTE | ~2024-01-22 | XR_ITS ---
EXAMINATION: XR ANKLE, RIGHT XR ANKLE, LEFT CLINICAL INFORMATION: Osteoarthritis. COMPARISON: None TECHNIQUE: AP, lateral, and mortise views of each ankle. FINDINGS: RIGHT ANKLE: Soft tissue swelling at the ankle. No fracture or malalignment. Ankle mortise is symmetric. No appreciable talar osteochondral injuries. Bone mineralization is normal. Small enthesopathic spurs are present at the Achilles tendon insertion and plantar fascial origin on the calcaneus. LEFT ANKLE: Minimal soft tissue swelling at the ankle. Alignment is appropriate. No fractures. Ankle mortise is symmetric. Joint spaces are normal. No joint effusion. Moderate sized enthesopathic spurs are present at the Achilles tendon insertion and plantar fascial origin on the calcaneus. XR/XR ankle LT min 3V IMPRESSION: 1. No acute osseous findings at the ankles. 2. Bilateral calcaneal spurs. Electronically signed by: Alejandro Castaneda MD 01/28/2024 11:49 AM EDT
--- NOTE | ~2024-01-22 | XR_ITS ---
EXAMINATION: XR THORACIC SPINE XR LUMBAR SPINE CLINICAL INFORMATION: Unspecified osteoarthritis. COMPARISON: None available. TECHNIQUE: AP, lateral, and swimmer's views of the thoracic spine and AP and lateral views of the lumbar spine and lateral view of the lumbosacral junction. FINDINGS: Thoracic: Hyperkyphosis of the thoracic spine. Vertebral body heights appear normal. No acute fractures are identified. There is solid hypertrophic osseous bridging across the vertebral bodies mid thoracic spine from the levels of T3-T12. Minimal right convex curvature. No spondylolisthesis. Paraspinal soft tissues are unremarkable. Calcific atherosclerosis in the thoracic aorta. Lumbar: There are 6 lumbar-type vertebral bodies with a transitional lumbosacral level which can be referred to as L6 or S1. There is grade 1 anterolisthesis of L4 on L5 and L5 on S1 (9 mm and 6 mm). Marked facet arthropathy is present in the lower lumbar spine. There is meilskcw-ds-cmkifr degenerative disc disease at L4-L5 and L5-S1. More oogo-xn-qxxbhrgi degenerative disc disease at other levels. No osseous lesions. Intervertebral body heights are normal. No fractures. Mild osteoarthritis in the SI joints. Gallstone is noted in the right upper quadrant, measuring 2 cm in diameter. XR/XR lumbar spine 4V min IMPRESSION: 1. No acute fractures in the thoracic or lumbar spine. 2. Hyperkyphosis of the thoracic spine with solid hypertrophic osseous bridging across the vertebral bodies from T3-T12, most consistent with diffuse idiopathic skeletal hyperostosis (DISH). 3. Grade 1 anterolisthesis of L4 on L5 and L5 on S1 with marked facet arthropathy in the lower lumbar spine. 4. Oagbsskv-rs-wxpjkn degenerative disc disease at L4-L5 and L5-S1. 5. Cholelithiasis. Electronically signed by: Alejandro Castaneda MD 02/04/2024 11:46 PM EDT
--- NOTE | ~2024-01-22 | XR_ITS ---
EXAMINATION: XR THORACIC SPINE XR LUMBAR SPINE CLINICAL INFORMATION: Unspecified osteoarthritis. COMPARISON: None available. TECHNIQUE: AP, lateral, and swimmer's views of the thoracic spine and AP and lateral views of the lumbar spine and lateral view of the lumbosacral junction. FINDINGS: Thoracic: Hyperkyphosis of the thoracic spine. Vertebral body heights appear normal. No acute fractures are identified. There is solid hypertrophic osseous bridging across the vertebral bodies mid thoracic spine from the levels of T3-T12. Minimal right convex curvature. No spondylolisthesis. Paraspinal soft tissues are unremarkable. Calcific atherosclerosis in the thoracic aorta. Lumbar: There are 6 lumbar-type vertebral bodies with a transitional lumbosacral level which can be referred to as L6 or S1. There is grade 1 anterolisthesis of L4 on L5 and L5 on S1 (9 mm and 6 mm). Marked facet arthropathy is present in the lower lumbar spine. There is lpazupwg-gr-maxzzk degenerative disc disease at L4-L5 and L5-S1. More kjiu-vx-scjyxqpi degenerative disc disease at other levels. No osseous lesions. Intervertebral body heights are normal. No fractures. Mild osteoarthritis in the SI joints. Gallstone is noted in the right upper quadrant, measuring 2 cm in diameter. XR/XR thoracic spine 3V IMPRESSION: 1. No acute fractures in the thoracic or lumbar spine. 2. Hyperkyphosis of the thoracic spine with solid hypertrophic osseous bridging across the vertebral bodies from T3-T12, most consistent with diffuse idiopathic skeletal hyperostosis (DISH). 3. Grade 1 anterolisthesis of L4 on L5 and L5 on S1 with marked facet arthropathy in the lower lumbar spine. 4. Wbwgplol-dq-eqmqfl degenerative disc disease at L4-L5 and L5-S1. 5. Cholelithiasis. Electronically signed by: Alejandro Castaneda MD 02/04/2024 11:46 PM EDT
--- NOTE | ~2024-01-22 | XR_ITS ---
EXAMINATION: XR SACROILIAC JOINTS CLINICAL INFORMATION: Unspecified osteoarthritis. COMPARISON: None available. TECHNIQUE: 3 views of the sacroiliac joints FINDINGS: Mild osteoarthritis in both SI joints. Degenerative disc disease and facet arthropathy in the lower lumbar spine. Hip joints are unremarkable. Pubic symphysis is normal. Bones are osteopenic. No osseous lesions. Soft tissues are unremarkable. XR/XR sacroiliac joint min 3V IMPRESSION: 1. Mild osteoarthritis in the SI joints. 2. Degenerative disc disease and facet arthropathy in the lower lumbar spine. Electronically signed by: Alejandro Castaneda MD 02/04/2024 11:46 PM EDT
== END 2024-01-22 08:25 | disposition home or self-care (01) ==
LOC: HO.XRAY 08:24
PROVIDERS: PCP Internal Medicine; Visit Provider Student in an Organized Health Care Education/Training Program
DX: M19.90 Unspecified osteoarthritis, unspecified site (principal); M32.9 Systemic lupus erythematosus, unspecified; M45.9 Ankylosing spondylitis of unspecified sites in spine; Z11.7 Encounter for testing for latent tuberculosis infection
CPT/HCPCS: 36415; 72072; 72110; 72202; 73110; 73130; 73610; 80053; 81001; 82570; 82784; 84156; 85025; 85652; 86038; 86140; 86160; 86200; 86225; 86235; 86255; 86334; 86431; 86481; 86704; 86706; 86709; 86803; 86812; 87340; 99212

== ENCOUNTER 2024-01-22 08:56 | Outpatient (REF) | payer MEDICARE, SELFPAY ==
[2024-01-22 10:32] LABS: MANUAL DIFF FLAG NO
[2024-01-22 10:34] LABS: Basophils Absolute Auto 0.1 X10*3/uL (0.0-0.2); Basophils Percent Auto 1.1 % (0-2); Eosinophils Absolute Auto 0.5 X10*3/uL (0.0-0.4); Eosinophils Percent Auto 6.7 % (0-4); Hematocrit 43.1 % (42.0-52.0); Hemoglobin 15.1 g/dl (14.0-18.0); Imm Gran Abs Auto 0.03 X10*3/uL (0.00-0.03); Imm Gran Pct Auto 0.4 % (0.0-0.4); Lymphocytes Absolute Auto 1.9 X10*3/uL (1.2-4.9); Lymphocytes Percent Auto 25.9 % (20-40); Mean Corpuscular Volume 85.7 fL (80.0-98.0); Mean Platelet Volume 8.6 fL (9.4-12.4); Monocytes Absolute Auto 1.2 X10*3/uL (0.1-1.2); Monocytes Percent Auto 15.4 % (2-11); Neutrophils Absolute Auto 3.8 x10*3/uL (2.0-8.3); Neutrophils Percent Auto 50.5 % (45-73); Platelet Count 247 X10*3/uL (160-400); Red Blood Count 5.03 X10*6/uL (4.60-5.80); Red Cell Distribution Width 13.4 % (11.0-16.0); White Blood Count 7.5 X10*3/uL (4.8-10.8)
[2024-01-22 10:41] LABS: Appearance Urine Clear; Color Urine Yellow; Glucose Urine UA Negative (Negative); Leukocyte Esterase Urine Negative (Negative); Nitrite Urine Negative (Negative); PH 6.5 (5.0-9.0); Specific Gravity - Urine 1.015 (1.005-1.025); Urine Blood Negative (Negative); Urine Ketones Negative (Negative); Urine Protein Negative (Neg-Trace)
[2024-01-22 10:51] LABS: Bacteria Urine None Seen (None Seen); Hyaline Casts Urine 0-2 /LPF (0-2); RBC Urine 0-2 /HPF (0-2); Squamous Epithelial Cell Urine 0-2 /HPF (0-2); WBC Urine 0-5 /HPF (0-5)
[2024-01-22 10:53] LABS: Alanine Aminotransferase 18 U/L (0-40); Albumin Level 4.4 g/dL (3.5-5.0); Alkaline Phosphatase 82 U/L (39-117); Anion Gap 12 (12-20); Aspartate Amino Transferase 17 U/L (5-37); Bilirubin Total 0.8 mg/dL (0.0-1.0); Blood Urea Nitrogen 12 mg/dL (9-16); C Reactive Protein < 0.10 mg/dL (< or = 0.50); Calcium 10.4 mg/dL (8.4-10.2); Carbon Dioxide 30 mmol/L (22-29); Chloride 103 mmol/L (96-108); Estimated Glomerular Filt Rate 49; Glucose Random 107 mg/dL (60-115); Sodium 141 mmol/L (135-145); Total Protein 7.3 g/dL (6.5-8.0)
[2024-01-22 11:07] LABS: Rheumatoid Factor < 13.0 IU/mL (<15.0)
[2024-01-22 11:11] LABS: Erythrocyte Sedimentation Rate 6 MM/HR (0-15)
[2024-01-22 11:20] LABS: HBS Num1 0.22 mIU/mL (0-7.99); HBc Num1 0.11 S/CO (0.00-0.79); HBsAGNum1 0.27 S/CO (0.00-0.99); Hepatitis A Antibody IgM 0.09 Index (0-0.79); Hepatitis B Core Antibody Nonreactive (Nonreactive); Hepatitis B Surface Antigen Negative (Negative); ~HepC Num1 0.15 S/CO (0.00-0.79); ~Hepatitis A Antibody IgM Nonreactive (Nonreactive); ~Hepatitis B Surface Antibody NONREACTIVE (Nonreactive); ~Hepatitis C Antibody Nonreactive (Nonreactive)
[2024-01-22 12:26] LABS: Creatinine Urine 107.04 mg/dL; Total Protein Urine Random < 7 mg/dL (<12)
[2024-01-23 16:48] LABS: Anti DNA DS Antibody <1 IU/mL; Antibody to SS-A Antigen <1.0 NEG AI (<1.0 NEG); Antibody to SS-B Antigen <1.0 NEG AI (<1.0 NEG); SM/Ribonucleoprotein Ab <1.0 NEG AI (<1.0 NEG); Smith Protein <1.0 NEG AI (<1.0 NEG)
[2024-01-23 22:23] LABS: IgA 161 mg/dL (70-320); IgG 1147 mg/dL (600-1540); IgM 67 mg/dL (50-300)
[2024-01-24 11:49] LABS: Anti Nuclear Antibody Screen NEGATIVE (NEGATIVE)
[2024-01-24 12:43] LABS: Cyclic Citrullinated Peptide <16 UNITS
[2024-01-24 14:43] LABS: Complement C3 135 mg/dL (82-185)
[2024-01-25 07:39] LABS: TS Negative Control Passed; TS Panel A 0; TS Panel B 0; TS Positive Control Passed; TSpotTB Negative (Negative)
[2024-01-25 19:54] LABS: HLA B27 Negative (Negative)
[2024-01-28 14:49] LABS: DNAds, Crithidia Antibody Negative (Negative)
== END 2024-01-22 08:57 | disposition home or self-care (01) ==
LOC: HO.10HDL 08:56
PROVIDERS: Visit Provider Student in an Organized Health Care Education/Training Program
DX: Z13.89 Encounter for screening for other disorder (principal)
CPT/HCPCS: 36415; 80053; 81001; 82570; 82784; 84156; 85025; 85652; 86038; 86140; 86160; 86200; 86225; 86235; 86255; 86334; 86431; 86481; 86704; 86706; 86709; 86803; 86812; 87340; 99212

== ENCOUNTER 2024-03-05 12:32 | Outpatient (AMB) | payer MEDICARE, SELFPAY ==
[2024-03-05 12:35] VITALS: BP 118/68; PULSE 72; O2SAT 99; BMI 26.6
--- NOTE | 2024-03-05 12:35 | A.OFFVIS_ITS ---
Vital Signs 03/05/24 12:35 Height 5 ft 6 in Weight 164 lb 14.492 oz BMI 26.6 BP 118/68 Blood Pressure Location Lt brachial Position Sitting Pulse 72 Pulse Source Pulse Oximeter Pulse Oximetry (%) 99 Oxygen Delivery Method Room Air Intake Visit Reasons: OA/RA/cm Intake Note: Patient last seen by doctor Ozzie Anguiano on 01/22/24. Presents today for OA/RA follow up. Allergies meperidine [From Demerol] Allergy (Severe, Verified 03/05/24 12:37) heart stopped bupropion Adverse Reaction (Severe, Verified 03/05/24 12:37) MS changes Medication List - Last Reconciled 03/05/24 by Ozzie Anguiano MD acetaminophen 1,000 mg PO Q6H PRN alendronate 70 mg PO QWEEK amlodipine 10 mg PO DAILY cholecalciferol (vitamin D3) 250 mcg PO QWEEK gabapentin 100 mg PO TID prednisone 2.5 mg PO BID tizanidine 2 mg PO BEDTIME PRN HPI Comments Details: 73-year-old male with generalized osteoarthritis, dish and fibromyalgia returns for follow-up. He remains on prednisone 2.5 mg Twice daily. He states that he feels about the same overall. Continues to have intermittent pain in the hands, low back, knees, generally worse with activity. [facility] Medical History (Updated 03/05/24 @ 13:01 by Ozzie Anguiano MD) CKD (chronic kidney disease) stage 3, GFR 30-59 ml/min Hypertension Fibromyalgia Osteopenia DISH (diffuse idiopathic skeletal hyperostosis) Carpal tunnel syndrome on both sides Inflammatory arthritis Social History Household Members: Spouse Housing: House Are you a primary pediatric critical care nurse to a significant other at home: No Do you presently have visiting nurse or other home services: No 75 years or older and lives alone: No Alcohol intake: never Patient Tobacco Use Status: Former Tobacco user e-Cigarette/Vaping Use: Never Used service: No Current occupational status: employed 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 Review of Systems [facility] [place] Reports back pain, Reports arthralgias and Reports stiffness Physical Exam Vital Signs: Last Vital Signs Pulse 72 03/05/24 12:35 BP 118/68 03/05/24 12:35 Pulse Ox 99 03/05/24 12:35 Oxygen Delivery Method Room Air 03/05/24 12:35 BMI result Body Mass Index 26.6 Const General: cooperative, healthy appearing and comfortable Nutritional Appearance: overweight Orientation/consciousness: patient oriented x3 Limitations: no limitations HEENT Head: Yes normocephalic and Yes atraumatic Resp Effort & Inspection: normal respiratory effort and able to speak in complete sentences Neuro General: patient oriented x3 Extrem Other: Kyphosis Hamzah test 10 to 12.5 cm Almost normal lateral flexion test Normal range of motion of neck Significant osteoarthritic changes of both hands, no swelling No elbow pain with full range of motion bilaterally Negative Rotator cuff provocative maneuvers bilaterally Negative Speed's test bilaterally Negative straight leg raise test bilaterally Equivocal ASHLEY test on the right Significant bilateral knee crepitus Assessment & Plan Assessment & Plan (1) Generalized osteoarthritis: Code(s): M15.9 - Polyosteoarthritis, unspecified Category: Medical Plan: Patient returns for follow-up. He was previously diagnosed with an inflammatory arthritis/PMR around 2011 and has been on prednisone varying doses since then. Upon evaluation today I do not see any evidence of inflammatory arthritis. I t hink what we are dealing with at this time is generalized osteoarthritis. Patient has been taking prednisone 2.5 mg Twice daily. Patient used to take NSAIDs regularly in the past and per patient this has caused CKD. Advised patient that steroids also have long-term side effects and we should do our best to use the least effective dose. Advised patient to lower his prednisone to 2.5 mg daily and start taking Tylenol 2500 mg daily in divided doses as a standing dose. 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 Patient to continue with alendronate 70 mg weekly. His DEXA scan from 01/2024 is stable. Discussed risks of cataracts and glaucoma. Advised patient to follow-up regularly with check clerk Plan I spent 25 minutes reviewing patient's chart, evaluating patient, ordering diagnostic workup, counseling patient and documenting in the chart Orders: Orders Comprehensive Met. 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
== END 2024-03-05 13:00 | disposition home or self-care (01) ==
PROVIDERS: PCP Internal Medicine; Visit Provider Student in an Organized Health Care Education/Training Program
DX: M15.9 Polyosteoarthritis, unspecified (principal); M48.10 Ankylosing hyperostosis [Forestier], site unspecified; Z79.52 Long term (current) use of systemic steroids
CPT/HCPCS: 99214

== ENCOUNTER → 2024-03-05 12:32 | Outpatient (BNVA) | payer MEDICARE, SELFPAY | PROVIDERS: PCP Internal Medicine; Visit Provider Student in an Organized Health Care Education/Training Program | DX: M15.9 Polyosteoarthritis, unspecified (principal); M48.10 Ankylosing hyperostosis [Forestier], site unspecified; Z79.52 Long term (current) use of systemic steroids | CPT/HCPCS: 99212 ==

== ENCOUNTER 2024-08-21 08:16 | Outpatient (REF) | payer MEDICARE, MEDICAID, SELFPAY ==
--- OUTSIDE RECORDS SUMMARY | 2024-08-21 08:20 | XMS_ITS | Clinical Summary ---
Author Organization [facility] Address [address] [place] [address] Phone Care Team Providers Care Oil Program Compliance Specialist Name Role Phone Marizol Lazaro MD Primary Care Provider Allergies Active Allergy Reactions Criticality Noted Date Comments Bupropion 09/12/2015 Stomach upset, racing Heart, insomnia, irriatability Meperidine Hcl 08/31/2005 dropped blood pressure Medications alendronate (FOSAMAX) 70 mg tablet Take 1 Tablet by mouth once a week. 2 Active cholecalcifero l (VITAMIN D-3) 50 mcg (2,000 unit) tablet Take 1 Tab by mouth 2 times daily. 9 Active gabapentin (NEURONTIN) 100 mg capsule TAKE 1 CAPSULE BY MOUTH IN THE MORNING AND 2 AT NIGHT 2 Active predniSONE (DELTASONE) 5 mg tablet Take 1 Tablet by mouth daily. Active tiZANidine (ZANAFLEX) 2 mg tablet 4 Active amLODIPine (NORVASC) 10 mg tablet TAKE ONE TABLET BY MOUTH ONCE DAILY 90 tablet 1 5 Active amLODIPine (NORVASC) 10 mg tablet TAKE ONE TABLET BY MOUTH ONCE DAILY 4 07/29/19 25 Discontinued Active Problems Problem Noted Date Diagnosed Date Diverticulitis 04/18/2023 CKD (chronic kidney disease) stage 3, GFR 30-59 ml/min (CMS/HCC V24, CMS/HCC V28) 09/22/2018 Overview (03/27/2024): Dr Tucker Carpal tunnel syndrome, bilateral 03/04/2016 Overview (03/27/2024): EMG/NCT 02/25: severe on right, moderate to severe on left Declined surgery Raynaud disease 09/12/2015 HTN (hypertension) 10/01/2014 Inflammatory arthropathy 01/05/2013 Overview (03/27/2024): Wrist, shoulder, back pains; no joint swelling; feels better on prednisone seronegative Osteopenia 01/05/2013 Overview (03/27/2024): October 2012 BMD FRAX estimate: 32% for fracture, 3.5% for hip fracture over 10 years Alendronate started 10/23, taken through October 2018 DISH (diffuse idiopathic skeletal hyperostosis) 09/04/2012 Overview (03/27/2024): Seen on Tspine films Fibromyalgia 12/03/2011 Overview (03/27/2024): Onset 2004? Gabapentin caused dysphoria in the past but restarted at a low dose fall 2016 Cholelithiasis 10/30/2011 Overview (03/27/2024): Noted on CT 2011 ? Symptoms. On ultrasound 2014 Hematuria, microscopic 09/18/2011 Overview (03/27/2024): Tiny stones seen on CT 09/21. Tiny right renal mass Immunizations Name Administration Dates Next Due Influenza Quadravalent, MDCK , 0.5ml, with preservative (Flucelvax) 6mo and older 01/21/2017 Influenza Quadravalent, gutierrez mbinant, 0.5ml, preservative free (Flublok) 18yo and older 02/16/2020 Influenza trivalent, 0.5mL ( Fluad) 65yo and older 02/18/2020 Influenza trivalent, 0.5mL ( Fluzone High-dose) 65yo and older 01/22/2024,04/18/2023,02/27/2021,03/25,02/10/2018 Influenza trivalent, 0.5mL, preservative free (Fluarix; FluLaval; Fluzone) ages 6mo and older (Afluria) 3 years and older 01/23/2016 Influenza trivalent, with pr eservative (Fluzone; Afluria) 6mo and older 03/22/2014,04/06/2013 Influenza, Unspecified 01/23/2016 Pneumococcal conjugate 13 va lent (Prevnar 13, PCV13) 2mo and older 08/08/2017 Pneumococcal polysaccharide 23 valent (Pneumovax 23) 2yo and older 03/25/2019 Td Tetanus diptheria (Tdvax) 7yo and older 11/27/2021 Tdap Tetanus diptheria acell ular pertussis (Boostrix; Adacel) 7yo and older 12/03/2011 Zoster Live 01/23/2016 Surgical History Surgery Date Site/Laterality Comments HEMORRHOID SURGERY PROCEDURE: HISTORICAL HEMMORROIDECTOMY CYST REMOVAL PROCEDURE: IA EXCISION PILONIDAL CYST/SINUS SIMPLE Medical History Medical History Date Comments Pain in joint, site unspecified 09/18/2011 DX:Pain in joint, site unspecified Hematuria, microscopic 09/18/2011 DX:Hematu filemon, microscopic History of nephritic syndrome DX :History of nephritic syndrome; COMMENT: at age 12 or so Cholelithiasis 10/30/2011 DX:Cholelithiasi s Fibromyalgia 12/03/2011 DX:Fibromyalgia Raynaud disease 09/12/2015 DX:Raynaud disea se Carpal tunnel syndrome, bilateral 03/04/2016 DX:Carpal tunnel syndrome, bilateral; COMMENT: EMG/NCT 02/25: severe on right, moderate to severe on left Diverticulitis 04/18/2023 DX:Diverticuliti s Family History Medical History Relation Name Comments Arthritis Father hx RA, CHF, str carmen Colon cancer Maternal Grandmother Arthritis Mother DJD Relation Name Status Comments Father Maternal Grandmother Mother Social History Tobacco Use Types Packs/Day Years Used Date Smoking Tobacco: Former Smokeless Tobacco: Never Tobacco Cessation:Counseling Given: Not Answered Alcohol Use Standard Drinks/Week Comments No 0 (1 standard drink = 0.6 oz pur e alcohol) Sex and Gender Information Value Date Recorded Sex Assigned at Not on file Legal Sex Male 9:41 AM EST Gender Identity Not on file Sexual Orientation Not on file Obstetrics History Last Filed Vital Signs Vital Sign Reading Time Taken Comments Blood Pressure 130/60 05/04/2024 8:51 AM EST Pulse 59 05/04/2024 8:51 AM EST Temperature 35.8 ??C (96.4 ??F) 05/04/2024 8:51 AM ES T Respiratory Rate 16 05/04/2024 8:51 AM EST Oxygen Saturation 98% 05/04/2024 8:51 AM EST Inhaled Oxygen Concentration - - Weight 79.4 kg (175 lb) 05/04/2024 8:51 AM EST Height 170.2 cm (5' 7 ) 05/04/2024 8:51 AM EST Body Mass Index 27.41 05/04/2024 8:51 AM EST Plan of Treatment Upcoming Encounters Date Type Department Care Team (Late st Contact Info) Description 11/02/2024 8:30 AM EDT Office Visit Adult Medicine [facility] [address] [place] [address] Marizol Lazaro MD [address] [place] [address] Health Maintenance Due Date Last Done Comments Zoster Vaccines (2 of 3) 03/19/2016 01/23/2016 Social Influencers of Health Screening 04/10/2022 COVID-19 Vaccine ( season) 2024 03/17/2021, 07/23/2020, 06/25/2020 Hypertension/CHF/CAD Annual BMP Blood Test 02/22/2024 02/21/2023 Depression Screening 10/31/2024 11/01/2023 Medicare Annual Wellness Visit 10/31/2024 11/01/2023 Falls Risk Assessment 01/21/2025 01/22/2024 Cholesterol Screening (Lipid Panel) 06/02/2026 06/02/2021 RSV Immunization Adult Patients (1 - 1-dose 75+ series) 2027 Colorectal Cancer Screening: Colonoscopy 09/21/2031 09/20/2021 DTaP,Tdap,and Td Vaccines (3 - Td or Tdap) 11/28/2031 11/27/2021, 12/03/2011 Hepatitis C Screening Completed 11/18/2014 Pneumococcal Vaccine: 50+ Years Completed 03/25/2019, 08/08/2017 Abdominal Aortic Aneurysm (AAA) Screen Addressed 05/15/2023 Overridden with the intention of not completing the topic Influenza Vaccine Completed 01/22/2024, , 02/27/2021, Additional history exists HIB Vaccines Aged Out No longer eligi ble based on patient's age to complete this topic HPV Vaccines Aged Out No longer eligi ble based on patient's age to complete this topic Hepatitis A Vaccines Aged Out No long er eligible based on patient's age to complete this topic Hepatitis B Vaccines Aged Out No long er eligible based on patient's age to complete this topic IPV Vaccines Aged Out No longer eligi ble based on patient's age to complete this topic MMR Vaccines Aged Out No longer eligi ble based on patient's age to complete this topic Meningococcal ACWY Vaccine Aged Out N o longer eligible based on patient's age to complete this topic Meningococcal B Vaccine Aged Out No l onger eligible based on patient's age to complete this topic RSV Immunization Patients Under 20 months Aged Out No longer eligible based on patient's age to complete this topic Varicella Vaccines Aged Out No longer eligible based on patient's age to complete this topic Procedures Procedure Name Priority Date/Time Associated Diagnosis Comments FALLS RISK ASSESSMENT Routine 01/22/2024 DEPRESSION SCREENING Routine 11/01/2023 ANNUAL BMP BLOOD TEST Routine 02/21/2023 COLONOSCOPY Routine 09/20/2021 LIPID PANEL Routine 06/02/2021 HEPATITIS C SCREENING Routine 11/18/2014 from Last 3 Months or Most Recently Relevant to Health Maintenance Results * Falls Risk Assessment (01/22/2024) Falls Risk Assessment Abstracted us Historical Provider MD HEALTH MAINTENANCE Final Result * Depression Screening (11/01/2023) [facility] Depression Screening Abstracted [facility] Provider HEALTH MAINTENANCE Final Result * Annual BMP Blood Test (02/21/2023) [facility] Annual BMP Blood Test Abstracted [facility] Provider HEALTH MAINTENANCE Final Result * Colonoscopy (09/20/2021) [facility] Colonoscopy No Interpretation , Abstracted Anatomical Region Laterality Modality Other [facility] Provider HEALTH MAINTENANCE Final Result * Lipid panel (06/02/2021) [facility] LDL/HDL Ratio 3 0 - 4 Triglycerides 56 0 - 150 mg/dL Cholesterol 166 0 - 200 mg/dL HDL 58 >=40 mg/dL LDL Cholesterol 97 0 - 100 mg/dL Blood Venous blood specimen / Unknown Result [facility] Provider LAB BLOOD ORDERABLES Kasie l Result * Hepatitis C Screening (11/18/2014) [facility] Hepatitis C Screening Abstracted [facility] Provider HEALTH MAINTENANCE Final Result from Last 3 Months or Most Recently Relevant to Health Maintenance Insurance [employer] Member Subscriber Plan / Payer (Ef fective 2023-Present) Name:Brannon Flores Relation to Subscriber:Self Name:Brannon Flores Payer ID:[id number] Group ID:Not on file Type:Not on file Address: [facility] [address] [id number] Care Teams Oil Program Compliance Specialist Relationship Specialty Start Date End Date Marizol Lazaro MD [address] [place] [address] PCP - General 05/29/05
[2024-08-21 10:59] LABS: MANUAL DIFF FLAG NO
[2024-08-21 11:10] LABS: Basophils Absolute Auto 0.1 X10*3/uL (0.0-0.2); Eosinophils Absolute Auto 0.5 X10*3/uL (0.0-0.4); Eosinophils Percent Auto 7.3 % (0-4); Hematocrit 39.7 % (42.0-52.0); Hemoglobin 14.2 g/dl (14.0-18.0); Imm Gran Abs Auto 0.03 X10*3/uL (0.00-0.03); Imm Gran Pct Auto 0.4 % (0.0-0.4); Lymphocytes Absolute Auto 1.9 X10*3/uL (1.2-4.9); Lymphocytes Percent Auto 26.4 % (20-40); Mean Corpuscular HGB Conc 35.8 g/dl (31.0-36.0); Mean Corpuscular Hemoglobin 29.3 pg (27.0-33.0); Monocytes Absolute Auto 1.1 X10*3/uL (0.1-1.2); Monocytes Percent Auto 15.1 % (2-11); Neutrophils Absolute Auto 3.6 x10*3/uL (2.0-8.3); Neutrophils Percent Auto 49.8 % (45-73); Platelet Count 231 X10*3/uL (160-400); Red Blood Count 4.84 X10*6/uL (4.60-5.80); Red Cell Distribution Width 13.3 % (11.0-16.0); White Blood Count 7.3 X10*3/uL (4.8-10.8)
[2024-08-21 11:30] LABS: Alanine Aminotransferase 19 U/L (0-40); Alkaline Phosphatase 82 U/L (39-117); Anion Gap 9 (12-20); Aspartate Amino Transferase 22 U/L (5-37); Bilirubin Total 0.6 mg/dL (0.0-1.0); Blood Urea Nitrogen 17 mg/dL (9-16); Calcium 9.2 mg/dL (8.4-10.2); Carbon Dioxide 29 mmol/L (22-29); Chloride 108 mmol/L (96-108); Estimated Glomerular Filt Rate 58; Glucose Random 106 mg/dL (60-115); Potassium 3.9 mmol/L (3.3-5.1); Sodium 142 mmol/L (135-145); Total Protein 6.6 g/dL (6.5-8.0)
[2024-08-21 11:55] LABS: Erythrocyte Sedimentation Rate 6 MM/HR (0-15)
== END 2024-08-21 08:17 | disposition home or self-care (01) ==
LOC: HO.10HDL 08:16
PROVIDERS: Visit Provider Student in an Organized Health Care Education/Training Program
DX: M19.90 Unspecified osteoarthritis, unspecified site (principal)
CPT/HCPCS: 36415; 80053; 85025; 85652; 86140

== ENCOUNTER 2024-09-03 08:44 | Outpatient (AMB) | payer MEDICARE, MEDICAID, SELFPAY ==
--- NOTE | 2024-09-03 08:49 | MHC.OFFVIS ---
Vital Signs 09/03/24 08:52 Height 5 ft 6 in Weight 183 lb 13.848 oz BMI 29.7 BP 124/62 Blood Pressure Location Lt brachial Position Sitting Pulse 63 Pulse Source Pulse Oximeter Pulse Oximetry (%) 100 Oxygen Delivery Method Room Air Intake Visit Reasons: OA Intake Note: Patient presents for OA follow up. 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 Anguiano. At that time he was following up for his osteoarthritis, dish and fibromyalgia. He remains on prednisolone 2.5 mg twice a day feeling the same overall having intermittent pains in the hands, low back, and knees that is worse with activity Today He reports that he feels just about the same particularly his back pain. Currently also complaining of his left knee which he received an injection about a year ago for and is requesting another injection today Rheumatologic History: PMR Diagnosed in 2011 and has been on varying doses of prednisone Current Rheumatology Medication(s): Prednisone 2.5mg daily gabapentin 100mg tid [facility] Medical History (Updated 09/03/24 @ 09:50 by Lissette Man MD) CKD (chronic kidney disease) stage 3, GFR 30-59 ml/min Hypertension Fibromyalgia Osteopenia DISH (diffuse idiopathic skeletal hyperostosis) Carpal tunnel syndrome on both sides Inflammatory arthritis Social History Household Members: Spouse Housing: House Are you a primary acute care nurse practitioner to a significant other at home: No Do you presently have visiting nurse or other home services: No 75 years or older and lives alone: No Alcohol intake: never Patient Tobacco Use Status: Former Tobacco user e-Cigarette/Vaping Use: Never Used service: No Current occupational status: employed Current occupation: [employer] Review of Systems Const Details: Review of Systems Constitutional: Denies fever, chills, weight loss ENT: Denies vision changes, eye pain or eye redness, dental caries, dry mouth GI: Denies nausea, vomiting, diarrhea, abdominal pain, change in BM Pulm: Denies SOB, AMIN, hemoptysis, wheezing Cards: Denies chest pain, palpitations Skin: Denies Raynaud's, rash, nail changes, photosensitivity, 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 Well appearing and in no apparent painful distress HEENT Conjunctiva and sclera clear. ?Pupils equal round and reactive to light. ?No lymphadenopathy. ? CHEST/RESPIRATORY SYSTEM Normal respiratory effort and able to speak in complete sentences. ?Clear to auscultation bilaterally. ?No crackles, rales, rhonchi, wheezes heard. CARDIAC SYSTEM Regular rate and rhythm. ?S1 and S2 heard no murmurs. ?Radial pulses intact bilaterally MSK Hands: ?Able to make a fist. No synovitis noted to the MCPs, PIPs or DIPs. ?No tenderness to palpation of these joints. No deformities noted. ? Wrists: ?Full range of motion at the wrists without pain. ?No tenderness to palpation or synovitis noted to the wrists. Elbows: Full range of motion without pain. No tenderness, weakness, swelling, increased warmth or erythema. Shoulders: Full range of active range of motion without pain. No tenderness, weakness, swelling, increased warmth or erythema. Knees: ?Full range of motion. ?No tenderness, swelling, increased warmth or erythema.?Crepitations felt Ankles: Full range of motion. ?No tenderness, swelling, increased warmth or erythema.? Feet: ?Negative squeeze test. ?No tenderness to palpation or swelling of the MTPs. Tender points:?No tenderness to palpation of the bilateral trapezius, supraspinatus, greater trochanters, anterior costochondral junctions, bilateral gluteal areas, bilateral suboccipital muscle insertions SKIN Skin intact without rashes. Office Procedures AMB Joint Injection/Aspiration Joint Injection/Aspiration Details: Procedure was explained to the patient and consent was obtained. ? The area of interest was identified and confirmed with patient. ?This was subsequently cleaned with chlorhexidine x3. ? The area was then anesthetized using ethyl chloride spray. 40 mg Kenalog with 1 cc 1% lidocaine was injected without issue. ?Minimal to no bleeding. ?Patient tolerated procedure. Primary Site: left knee Injected: 40 mg of, Kenalog, with 1 mL of and 1% plain lidocaine Approach Used: anterior Procedure: The patient tolerated the procedure well Coding 99377 - Large joint Procedure code (CPT) selection complete Office Meds lidocaine (PF) 10 mg/mL (1 %) injection solution Performing Provider: Lissette Man MD [place] [facility] [place] [facility] Administered by: Lissette Man MD on 09/03/24 09:52 Dose Route Admin Location Dispensed Lot Number Expiration Date [facility] [place] 1 mL Infiltration left knee 2 mL [id number] 08/11/26 88352-931-69 [facility] [employer] [facility] Kenalog 40 mg/mL suspension for injection Performing Provider: Lissette Man MD Performing Location: [facility] [place] [facility] Administered by: Lissette Man MD on 09/03/24 09:52 Dose Route Admin Location Dispensed Lot Number Expiration Date [facility] [place] 40 mg intra-articular left knee 1 mL [id number] 11/10/25 [address]-5 [employer] Results Reviewed Results Reviewed: Laboratory Tests 08/21/24 08:22 WBC 7.3 RBC 4.84 Hgb 14.2 Hct 39.7 L Plt Count 231 ESR 6 Sodium 142 Potassium 3.9 Chloride 108 Carbon Dioxide 29 BUN 17 H Creatinine 1.22 AST 22 ALT 19 Alkaline Phosphatase 82 C-Reactive Protein 0.10 Total Protein 6.6 Albumin 4.0 Immunology labs 01/22/24 09:00 Rheumatoid Factor < 13.0 Cycl Citrul Peptide IgG <16 DUNIA Screen NEGATIVE HLA-B27 Negative XR Spine: Thoracic and Lumbar 01/2024 FINDINGS: Thoracic: Hyperkyphosis of the thoracic spine. Vertebral body heights appear normal. No acute fractures are identified. There is solid hypertrophic osseous bridging across the vertebral bodies mid thoracic spine from the levels of T3-T12. Minimal right convex curvature. No spondylolisthesis. Paraspinal soft tissues are unremarkable. Calcific atherosclerosis in the thoracic aorta. Lumbar: There are 6 lumbar-type vertebral bodies with a transitional lumbosacral level which can be referred to as L6 or S1. There is grade 1 anterolisthesis of L4 on L5 and L5 on S1 (9 mm and 6 mm). Marked facet arthropathy is present in the lower lumbar spine. There is yfllesip-wb-hlbqwl degenerative disc disease at L4-L5 and L5-S1. More boyj-tm-qdaglbwi degenerative disc disease at other levels. No osseous lesions. Intervertebral body heights are normal. No fractures. Mild osteoarthritis in the SI joints. Gallstone is noted in the right upper quadrant, measuring 2 cm in diameter. IMPRESSION: 1. No acute fractures in the thoracic or lumbar spine. 2. Hyperkyphosis of the thoracic spine with solid hypertrophic osseous bridging across the vertebral bodies from T3-T12, most consistent with diffuse idiopathic skeletal hyperostosis (DISH). 3. Grade 1 anterolisthesis of L4 on L5 and L5 on S1 with marked facet arthropathy in the lower lumbar spine. 4. Xavmzlci-mm-xgpttt degenerative disc disease at L4-L5 and L5-S1. 5. Cholelithiasis. XR Bilateral Hands/Wrists 01/2024 FINDINGS: RIGHT HAND/WRIST: Izbcjepl-ik-lwndcp first CMC osteoarthritis with joint space narrowing, marginal osteophytes, and subchondral cystic change. More moderate osteoarthritis at the thumb and long finger MCP joints as well as the thumb interphalangeal joint and multiple DIP joints. More mild osteoarthritis at the triscaphe joint and other interphalangeal joints. No fractures. Bone mineralization is normal. No erosions or significant periostitis. Soft tissues are unremarkable. No chondrocalcinosis. LEFT HAND/WRIST: Multifocal osteoarthritis is moderate in severity at the first CMC, first through third MCP, thumb interphalangeal, and long finger DIP joints. More mild multifocal osteoarthritis is present in other interphalangeal joints, the triscaphe joint, and the radiocarpal joint. No erosions. Bone mineralization is normal. Soft tissues are unremarkable. No chondrocalcinosis. No fractures. IMPRESSION: Multifocal osteoarthritis in both hands and wrists, most notably at the first CMC joints, right greater than left. No evidence of inflammatory arthropathy. DEXA 01/2024 FINDINGS: AP SPINE L2-L3 (excluding L1 and L4): The data of L1-L4 has been changed to exclude the L1 and L4 vertebral bodies, because degenerative sclerosis at these levels may cause overestimation of lumbar spine density. BMD 1.178 g/cm2, Z-score 0.0, T-score -0.5, normal. LEFT FEMUR, NECK: BMD 0.878 g/cm2, Z-score -0.2, T-score -1.5, osteopenia. LEFT FEMUR, TOTAL: BMD 0.928 g/cm2, Z-score -0.4, T-score -1.2, osteopenia. Assessment & Plan Assessment & Plan (1) Generalized osteoarthritis: Code(s): M15.9 - Polyosteoarthritis, unspecified Category: Medical Plan: #Polyarticular OA Patient is a 74-year-old male with polyarticular osteoarthritis affecting his knees, thoracic and lumbar spine also complicated by dish here today for follow up. Currently stable on his current medication of prednisone 2.5 mg daily and gabapentin 100 mg t.i.d.. Status post steroid injection to the left knee. Plan - Prednisone 2.5mg daily. Plan to decrease dose at next visit - Gabapentin 100mg tid - s/p steroid injection to the left knee today - Pain management for re-evaluation of back pain - RTC 6 months - Labs before visit: CBC, CMP, ESR, CRP (2) Osteopenia: Comment: October 2012 BMD FRAX estimate: 32% for fracture, 3.5% for hip fracture over 10 years Alendronate started 10/23, taken through October 2018. Restarted 09/2021 11.2% increase in bone density measured at the lumbar spine. 07/2017 DEXA: 3.6% increase in bone density is measured at the left hip compared to 09/15/2012. 10/2021: bone density dropped again, alendronate restarted Code(s): M85.80 - Other specified disorders of bone density and structure, unspecified site Category: Medical Qualifiers: Osteopenia location: multiple sites Qualified Code(s): M85.89 - Other specified disorders of bone density and structure, multiple sites Plan: #Osteopenia Patient with a longstanding history of osteopenia on an off alendronate. Currently on alendronate with most recent bone density in 2023 only mild osteopenia of the hip with normal AP spine. 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: Code(s): Z79.52 - skilled nursing (current) use of systemic steroids Category: Medical Plan: #Long-term Use of Steroids Discussed with patient the risks and benefits of steroid for managing the rheumatic condition Benefits include: - Reduced pain, improved mobility, increased participation in activities, and decreased progression of disease Risks include: - GI upset, potential ultrasound worsening or formation (especially in patients > 65 years old), elevated blood pressure/worsening hypertension, elevated blood sugar/worsening diabetes control, worsening of bone density, elevated lipids/worsening triglycerides, cataract formation, weight gain Recommended using proton pump inhibitors (PPIs) for the duration of steroid use to reduce the risk of gastric ulcers and vitamin-D daily to reduce the risk of osteoporosis Labs checked: ?A1c, T spot, hepatitis-B and C serologies Pneumocystis jiroveci prophylaxis: ?Patient with risk factors including steroids greater than 50 mg for more than 30 days, age greater than 60 years, and lung involvement from underlying rheumatic disease requires prophylaxis and will be given so (4) Encounter for ongoing osteoporosis therapy, bisphosphonates: Code(s): M81.0 - Age-related osteoporosis without current pathological fracture; Z79.83 - skilled nursing (current) use of bisphosphonates Plan: #Long-term Use of Bisphosphonates Risks and benefits of bisphosphonates in the management of osteoporosis Benefits include improved bone density, decreased fracture risk Risks include atypical femoral fractures, GI upset, esophageal strictures Contraindicated in patients with a creatinine clearance < 30 to 35 ml/min Keep vitamin-D at least 35 ng/mL Plan I spent 32 minutes reviewing the record and labs, taking a history, examining the patient, discussing the treatment plan, ordering diagnostic work up and documenting in the medical record Orders: Orders Complete Blood Count Auto Diff 6 Months M15.9 - Polyosteoarthritis, unspecified Comprehensive Met. 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
[2024-09-03 08:52] VITALS: BP 124/62; PULSE 63; O2SAT 100; BMI 29.7
--- OUTSIDE RECORDS SUMMARY | 2024-09-03 09:12 | XMS_ITS | Clinical Summary ---
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 11/02/2021 Active cholecalciferol (VITAMIN D-3) 50 mcg (2,000 unit) tablet Take 1 Tab by mouth 2 times daily. 10/28/2018 Active gabapentin (NEURONTIN) 100 mg capsule TAKE 1 CAPSULE BY MOUTH IN THE MORNING AND 2 AT NIGHT 11/24/2021 Active predniSONE (DELTASONE) 5 mg tablet Take 1 Tablet by mouth daily. Active tiZANidine (ZANAFLEX) 2 mg tablet 06/07/2023 Active amLODIPine (NORVASC) 10 mg tablet TAKE ONE TABLET BY MOUTH ONCE DAILY 90 tablet 1 07/28/2024 Active Active Problems Problem Noted Date Diagnosed Date Diverticulitis 04/18/2023 CKD (chronic kidney disease) stage 3, GFR 30-59 ml/min (CMS/[facility] V24, CMS/HCC V28) 09/22/2018 Overview (03/27/2024): Dr [...] SURGERY PROCEDURE: HISTORICAL HEMMORROIDECTOMY CYST REMOVAL PROCEDURE: KS EXCISION PILONIDAL CYST/SINUS SIMPLE Medical History Medical [...] 8:30 AM EDT Office Visit Adult Medicine [facility] [address] [place] [address] Marizol Lazaro MD [address] [place] [address] Health Maintenance Due Date Last Done Comments [...] Maintenance Results * Falls Risk Assessment (01/22/2024) Pathologist [facility] Falls Risk Assessment Abstracted Historical Provider HEALTH MAINTENANCE Final Result * Depression Screening (11/01/2023) Pathologist [facility] HM Depression Screening Abstracted us Historical Provider HEALTH MAINTENANCE Final Result * Annual BMP Blood Test (02/21/2023) Pathologist [facility] Annual BMP Blood Test Abstracted [facility] Provider HEALTH MAINTENANCE Final Result * Colonoscopy (09/20/2021) Pathologist [facility] Colonoscopy No Interpretation , Abstracted Anatomical Region Laterality Modality Other [facility] Provider HEALTH MAINTENANCE Final Result * Lipid panel (06/02/2021) [facility] LDL/HDL Ratio 3 0 - 4 Triglycerides 56 0 - 150 mg/dL Cholesterol 166 0 - 200 mg/dL HDL 58 >=40 mg/dL LDL Cholesterol 97 0 - 100 mg/dL Blood Venous blood specimen / Unknown Result [facility] Provider LAB BLOOD ORDERABLES Kasie l Result * Hepatitis C Screening (11/18/2014) [facility] Hepatitis C Screening Abstracted [facility] Provider HEALTH MAINTENANCE Final Result from Last 3 Months or Most Recently Relevant to Health Maintenance Insurance [employer] [place] Care Teams Stoker Installation Mechanic Relationship Specialty Start Date End Date Marizol Lazaro MD [address] [place] [address] PCP - General 05/29/05
== END 2024-09-03 09:43 | disposition home or self-care (01) ==
LOC: HO.RHE 08:44
PROVIDERS: PCP Internal Medicine; Visit Provider Student in an Organized Health Care Education/Training Program
DX: M15.9 Polyosteoarthritis, unspecified (principal); M85.89 Other specified disorders of bone density and structure, multiple sites; Z79.52 Long term (current) use of systemic steroids; M81.0 Age-related osteoporosis without current pathological fracture; Z79.83 Long term (current) use of bisphosphonates; M17.12 Unilateral primary osteoarthritis, left knee
CPT/HCPCS: 20610; 99214

== ENCOUNTER → 2024-09-03 08:44 | Outpatient (BNVA) | payer MEDICARE, MEDICAID, SELFPAY | PROVIDERS: PCP Internal Medicine; Visit Provider Student in an Organized Health Care Education/Training Program | DX: M17.12 Unilateral primary osteoarthritis, left knee (principal); M81.0 Age-related osteoporosis without current pathological fracture; M85.89 Other specified disorders of bone density and structure, multiple sites; M79.7 Fibromyalgia; E55.9 Vitamin D deficiency, unspecified; Z79.52 Long term (current) use of systemic steroids; Z79.83 Long term (current) use of bisphosphonates | CPT/HCPCS: 20610; 99212; J3300 ==

== ENCOUNTER 2025-01-07 10:07 | Outpatient (AMB) | payer MEDICARE, SELFPAY ==
--- NOTE | 2025-01-07 10:16 | AM.OFFWIN_ITS ---
Intake Vital Signs 01/07/25 10:18 Height 5 ft 6 in Weight 174 lb BMI 28.1 BP 106/50 L Blood Pressure Location Rt brachial Position Sitting Pulse 68 Pulse Source Pulse Oximeter Temp 98.0 F Temp Source Oral Pulse Oximetry (%) 96 Oxygen Delivery Method Room Air Intake Visit Reasons: EP headaches, flu like symptoms, dizzy, shakes Intake Note: pt presents with dizziness, brain fog, weakness, tinnitus, hot and cold flashes, body aches, IBS flare- approximately 3 days Patient Tobacco Use Status: Former Tobacco user Allergies meperidine (From Demerol) Allergy (Severe, Verified 01/07/25 10:22) heart stopped bupropion Adverse Reaction (Severe, Verified 01/07/25 10:22) MS changes Do you need a note to return to daycare/school/sports/work: No HPI HPI Comments History of Present Illness Details 74 y/o Male patient who presents to the walk in clinic with c/o dizziness, brain fog, weakness, tinnitus, Nausea, hot/cold flashes, some diarrhea and body aches. Denies fevers but he does not have Thermometer at home. Denies any changes to his diet. [facility], [facility] Medical History (Updated 01/07/25 @ 10:45 by Jannette Swanson NP) Acute gastritis CKD (chronic kidney disease) stage 3, GFR 30-59 ml/min Hypertension Fibromyalgia Osteopenia DISH (diffuse idiopathic skeletal hyperostosis) Carpal tunnel syndrome on both sides Inflammatory arthritis Social History Household Members: Spouse Housing: House Are you a primary skin care consultant to a significant other at home: No Do you presently have visiting nurse or other home services: No 75 years or older and lives alone: No Alcohol intake: never Patient Tobacco Use Status: Former Tobacco user e-Cigarette/Vaping Use: Never Used service: No Current occupational status: employed 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 Review of Systems Const All systems reviewed & are unremarkable except as noted in HPI and below Physical Exam Vital Signs: Last Vital Signs Temp 98.0 F 01/07/25 10:18 Pulse 68 01/07/25 10:18 BP 106/50 L 01/07/25 10:18 Pulse Ox 96 01/07/25 10:18 Oxygen Delivery Method Room Air 01/07/25 10:18 BMI result Body Mass Index 28.1 Resp Effort & Inspection: normal respiratory effort Auscultation: clear to auscultation bilaterally Cardio Heart sounds: S1 normal heart sound present and S2 normal heart sound present GI Palpation (GI): Soft to palpation, not firm, nontender, no guarding, not rigid and No hepatosplenomegaly present Auscultation: Hypoactive bowel sounds present Rectal Exam - Male: Yes deferred Assessment & Plan Assessment & Plan (1) Acute gastritis: Code(s): K29.00 - Acute gastritis without bleeding Qualifiers: Gastritis bleeding: without bleeding Gastritis type: other gastritis Qualified Code(s): K29.00 - Acute gastritis without bleeding Plan: Probably Viral etiology. Ordered Zofran Advised BLAND diet. Medications: New ondansetron 8 mg PO Q8H 20 tabs 0RF K29.00 - Acute gastritis without bleeding Coding Level of Care Code Est Pt Level 4 (88633) Diagnoses Other acute gastritis without hemorrhage K29.00 Gastritis bleeding: without bleeding Gastritis type: other gastritis Time Spent (min) 20
[2025-01-07 10:18] VITALS: BP 106/50; PULSE 68; TEMP 36.7; O2SAT 96; BMI 28.1
--- OUTSIDE RECORDS SUMMARY | 2025-01-07 11:24 | XMS_ITS | Clinical Summary ---
Author Organization [facility] Address [address] [place] [address] Phone Care Team Providers Care Sld Teacher Name Role Phone Marizol Lazaro MD Primary Care Provider [phone] Allergies Active Allergy Reactions Criticality Noted Date [...] CMS/HCC V28) 09/22/2018 Overview (03/27/2024): Dr Tucker Assessment & Plan (11/02/2024 8:44 AM EDT): Orders: Basic metabolic panel; Future Carpal tunnel syndrome, bilateral 03/04/2016 Overview (03/27/2024): EMG/NCT 02/25: severe on right, moderate to severe on left Declined surgery Raynaud disease 09/12/2015 HTN (hypertension) 10/01/2014 Assessment & Plan (11/02/2024 8:44 AM EDT): Orders: Basic metabolic panel; Future 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 Gabapentin caused dysphoria in the past but restarted at a low dose fall 2015 Assessment & Plan (11/02/2024 8:44 AM EDT): Cholelithiasis 10/30/2011 Overview (03/27/2024): Noted on CT 2011 ? Symptoms. On ultrasound 2014 Hematuria, microscopic 09/18/2011 Overview (03/27/2024): Tiny stones seen on CT 09/21. Tiny right renal mass Encounters Date Type Department Care Team Description 11/02/2024 8:30 AM EDT Office Visit Adult Medicine [address] [address] Marizol Lazaro MD Encounter for annual wellness visit (AWV) in Medicare patient (Primary Dx); Primary hypertension; Stage 3a chronic kidney disease ([facility] V24, [facility] V28); Inflammatory arthropathy; Fibromyalgia; Osteopenia, unspecified location from Last 3 Months Immunizations Name Administration Dates Next Due Influenza [...] History Surgery Date Site/Laterality Comments HEMORRHOID SURGERY Medical History Medical History Date Comments Hematuria, microscopic 09/18/2011 History of nephritic syndrome at age 12 or so Cholelithiasis 10/30/2011 Fibromyalgia 12/03/2011 Raynaud disease 09/12/2015 Carpal tunnel syndrome, bilateral 03/04/2016 EMG/NCT 02/25: severe on right, moderate to severe on left Diverticulitis 04/18/2023 Family History Medical History Relation Name Comments [...] drink = 0.6 oz pur e alcohol) Housing Instability Answer Date Recorde d Are you worried that in the next 2 months you may not have stable housing? No 11/02/2024 Food Access & Nutrition Answer Date Rec orded Do you have access to a vari ety of food including fruits and vegetables? Yes 11/02/2024 Access to Healthcare Answer Date Record ed Within the last 3 months, ho [place] many times did you visit the emergency department for your medical care? 0 11/02/2024 Health Literacy Answer Date Recorded How often do you need to hav e someone help you when you read instructions, pamphlets, or other written material from your doctor or pharmacy? Never 11/02/2024 Caregiver: How often do you need to have someone help you when you read instructions, pamphlets, or other written material from your doctor or pharmacy? Not on file 11/02/2024 Financial Risk Answer Date Recorded How hard is it for you to pa y for the very basics like food, housing, medical care, and air conditioning / heating? Not very hard 11/02/2024 Transportation Answer Date Recorded Has the lack of transportati on kept you from meetings, work, or from getting things needed for daily living? No Has the lack of transportati on kept you from medical appointments or from getting medications? No 11/02/2024 Social Isolation Answer Date Recorded How often do you feel lonely or isolated from th ose around you? Never 11/02/2024 Food Risk Answer Date Recorded Within the past 12 months we worried whether our food would run out before we got money to buy more. Never true 11/02/2024 Within the past 12 months th e food we bought just didn't last and we didn't have money to get more. Never true 11/02/2024 Dependent Care Answer Date Recorded Do you need help finding or paying for care for your loved ones. For example, child support case officer or elderly care for an older adult? No 11/02/2024 Education Answer Date Recorded Do you think completing more education or training, like finishing a GED, going to college, or learning a trade, would be helpful for you? N/A 11/02/2024 Employment and Income Answer Date Recor ded During the last four weeks, have you been actively looking for work? No 11/02/2024 Living Situation Answer Date Recorded What is your living situation? 0 11/02/2024 Sex and Gender Information Value Date Recorded Sex Assigned at Not on file Legal Sex Male 9:41 AM EST Gender Identity Not on file Sexual Orientation Not on file Obstetrics History Last Filed Vital Signs Vital Sign Reading Time Taken Comments Blood Pressure 134/60 11/02/2024 8:39 AM EDT Pulse 72 11/02/2024 8:28 AM EDT Temperature 36.4 C (97.5 F) 11/02/2024 8:28 AM EDT Respiratory Rate 16 11/02/2024 8:28 AM EDT Oxygen Saturation 98% 11/02/2024 8:28 AM EDT Inhaled Oxygen Concentration - - Weight 82.6 kg (182 lb 3.2 oz) 11/02/2024 8:28 A M EDT Height 170.2 cm (5' 7 ) 11/02/2024 8:28 AM EDT Body Mass Index 28.54 11/02/2024 8:28 AM EDT Plan of Treatment Upcoming Encounters Date Type Department Care Team (Late st Contact Info) Description 05/03/2025 4:30 PM EST Office Visit Adult Medicine [facility] [address] [place] [address] Judith Valdez PA [address] [place] [address] Health Maintenance Due Date Last Done Comments Zoster Vaccines (1 of 2) 03/19/2016 01/23/2016 COVID-19 Vaccine (4 - 2024-25 season) 2024 03/17/2021, 07/23/2020, 06/25/2020 Influenza Vaccine (#1) 2025 , 04/18/2023, 02/27/2021, Additional history exists Falls Risk Assessment 11/02/2025 11/02/2024, 024 Hypertension/CHF/CAD Annual BMP Blood Test 11/02/2025 11/02/2024, 02/21/2023 Medicare Annual Wellness Visit 11/02/2025 11/02/2024 Social Influencers of Health Screening 11/02/2025 11/02/2024 RSV Immunization Adult Patients (1 - 1-dose 75+ series) 2027 Cholesterol Screening (Lipid Panel) 11/02/2029 11/02/2024, 06/02/2021 Colorectal Cancer Screening: Colonoscopy 09/21/2031 09/20/2021 DTaP,Tdap,and Td Vaccines (3 - Td or Tdap) 11/28/2031 11/27/2021, 12/03/2011 Hepatitis C Screening Completed 11/18/2014 Pneumococcal Vaccine: 50+ Years Completed 03/25/2019, 08/08/2017 Abdominal Aortic Aneurysm (AAA) Screen Addressed 05/15/2023 Overridden with the intention of not completing the topic Depression Screening Completed 11/02/2024, 11/01/19 24 HIB Vaccines Aged Out No longer eligi [...] Procedure Name Priority Date/Time Associated Diagnosis Comments HEMOGLOBIN A1C Routine 11/02/2024 9:06 AM EDT Elevated random blood glucose level LIPID PANEL WITH REFLEX TO DIRECT LDL Routine 11/02/2024 9:06 AM EDT Lipid screening VITAMIN D 25 HYDROXY Routine 11/02/2024 9:06 AM EDT Osteopenia, unspecified location PROSTATE SPECIFIC ANTIGEN SCREEN Routine 11/02/2024 9:06 AM EDT Prostate cancer screening BASIC METABOLIC PANEL Routine 11/02/2024 9:06 AM EDT Primary hypertension Stage 3a chronic kidney disease (CMS/HCC V24, CMS/HCC V28) FALLS RISK ASSESSMENT Routine 01/22/2024 DEPRESSION SCREENING Routine 11/01/2023 COLONOSCOPY Routine 09/20/2021 HEPATITIS C SCREENING Routine 11/18/2014 from Last 3 Months or Most Recently Relevant to Health Maintenance Results * Prostate specific antigen screen (11/02/2024 9:06 AM EDT) PSA 2.85 0.00 - 4.00 ng/mL LAB CHEMISTRY METHOD 11/02/2024 6:33 PM EDT [facility] Blood Venous blood specimen / Unknown Venipuncture / Unknown 11/02/2024 9:06 AM EDT 11/02/2024 9:06 AM EDT Narrative [facility] - 11/02/2024 6:33 PM EDT The Siemens Advia Centaur Chemiluminescent Immunoassay is used. Results obtained with different assay methods or kits cannot be used interchangeably. Results cannot be interpreted as absolute evidence of the presence or absence of malignant disease. us Judith HARVEY LAB BLOOD ORDERABLES Final Re sult [facility] [address] [place] [address], [place] [phone] * Lipid panel with reflex to direct LDL (11/02/2024 9:06 AM EDT) Cholesterol 167 0 - 200 mg/dL LAB CHEMISTRY METHOD 11/02/2024 6:12 PM EDT [facility] Triglycerides 80 0 - 150 mg/dL LAB CHEMISTRY METHOD 11/02/2024 6:12 PM EDT [facility] HDL 67 >=40 mg/dL LAB CHEMISTRY METHOD 11/02/2024 6:12 PM EDT [facility] LDL Calculated 84 0 - 100 mg/dL LAB CHEMISTRY METHOD 11/02/2024 6:12 PM EDT [facility] VLDL Cholesterol Gilberto 16 mg/dL LAB CHEMISTRY METHOD 11/02/2024 6:12 PM EDT [facility] Non HDL Chol. (LDL+VLDL) 100 <145 mg/dL LAB CHEMISTRY METHOD 11/02/2024 6:12 PM EDT [facility] Chol/HDL Ratio 2.5 0.0 - 4.4 LAB CHEMISTRY METHOD 11/02/2024 6:12 PM EDT [facility] Blood Venous blood specimen / Unknown Venipuncture / Unknown 11/02/2024 9:06 AM EDT 11/02/2024 9:06 AM EDT us Judith HARVEY LAB BLOOD ORDERABLES Final Re sult [facility] [address] [place] [address], [place] [phone] * Vitamin D 25 hydroxy (11/02/2024 9:06 AM EDT) Vit D, 25-Hydroxy 45.7 30.0 - 80.0 ng/mL LAB CHEMISTRY METHOD 11/02/2024 6:33 PM EDT [facility] Blood Venous blood specimen / Unknown Venipuncture / Unknown 11/02/2024 9:06 AM EDT 11/02/2024 9:06 AM EDT us Judith HARVEY LAB BLOOD ORDERABLES Final Re sult Performing Organization Address [facility]/ZIP Co de Phone Number [facility] [address] [place] [address], [place] [phone] * Hemoglobin A1c (11/02/2024 9:06 AM EDT) Hemoglobin A1C 5.5 <6.5 % LAB CHEMISTRY METHOD 11/02/2024 1:31 PM EDT [facility] Mean Bld Glu Estim. 111 mg/dL LAB CHEMISTRY METHOD 11/02/2024 1:31 PM EDT [facility] Blood Venous blood specimen / Unknown Venipuncture / Unknown 11/02/2024 9:06 AM EDT 11/02/2024 9:06 AM EDT us Judith HARVEY LAB BLOOD ORDERABLES Final Re sult Performing Organization Address [facility]/ZIP Co de Phone Number [facility] [address] [place] [address], [place] [phone] * (ABNORMAL) Basic metabolic panel (11/02/2024 9:06 AM EDT) Sodium 142 133 - 145 mmol/L LAB CHEMISTRY METHOD 11/02/2024 6:12 PM EDT [facility] Potassium 4.3 3.5 - 5.5 mmol/L LAB CHEMISTRY METHOD 11/02/2024 6:12 PM EDT [facility] Chloride 108 96 - 110 mmol/L LAB CHEMISTRY METHOD 11/02/2024 6:12 PM EDT [facility] CO2 27 21 - 32 mmol/L LAB CHEMISTRY METHOD 11/02/2024 6:12 PM [facility] Anion Gap 7 3 - 11 LAB CHEMISTRY METHOD 11/02/2024 6:12 PM [facility] Glucose 135(H) 70 - 100 mg/dL LAB CHEMISTRY METHOD 11/02/2024 6:12 PM [facility] BUN 14 5 - 25 mg/dL LAB CHEMISTRY METHOD 11/02/2024 6:12 PM [facility] Creatinine 1.44(H) 0.70 - 1.30 mg/dL LAB CHEMISTRY METHOD 11/02/2024 6:12 PM [facility] eGFR 52(L) >=60 mL/min/1. 73m2 LAB CHEMISTRY METHOD 11/02/2024 6:12 PM [facility] Comment:Calculation based on the Chronic Kidney Disease Epidemiology Collaboration (CKD-EPI) equation refit without adjustment for race. BUN/Creatinine Ratio 9.7 LAB CHEMISTRY METHOD 11/02/2024 6:12 PM [facility] Calcium 8.8 8.5 - 10.5 mg/dL LAB CHEMISTRY METHOD 11/02/2024 6:12 PM [facility] Blood Venous blood specimen / Unknown Venipuncture / Unknown 11/02/2024 9:06 AM EDT 11/02/2024 9:06 AM EDT Mraizol Lazaro MD LAB BLOOD ORDERABLES Final Resul t [facility] [address] [place] [address], * Falls Risk Assessment (01/22/2024) Falls Risk Assessment Abstracted [place] Provider HEALTH MAINTENANCE Final Result * Depression Screening (11/01/2023) Pathologist [facility] Depression Screening Abstracted Historical Provider HEALTH MAINTENANCE Final Result * Colonoscopy (09/20/2021) Colonoscopy No Interpretation , Abstracted Anatomical Region Laterality Modality Other Historical Provider HEALTH MAINTENANCE Final Result * Hepatitis C Screening (11/18/2014) Hepatitis C Screening Abstracted Historical Provider HEALTH MAINTENANCE Final Result from Last 3 Months or Most Recently Relevant to Health Maintenance Insurance MEDICARE [employer] [place] Care Teams Sld Teacher Relationship Specialty Start Date End Date Marizol Lazaro MD [address] [place] [address] PCP - General 05/29/05
--- OUTSIDE RECORDS SUMMARY | 2025-01-07 11:24 | XMS_ITS | Clinical Summary ---
Author Organization [facility] Address [address] [facility] [address] [place] [id number] Phone Care Team Providers Care Vulcanizer Operator Name Role Phone Marizol Lazaro MD Primary Care Provider [phone] Allergies Active Allergy Reactions Criticality Noted Date Comments Meperidine 07/18/2021 Social History Tobacco Use Types Packs/Day Years Used Date Smoking Tobacco: Never Smokeless Tobacco: Never Alcohol Use Standard Drinks/Week Comments Not Currently 0 (1 standard drink = 0.6 oz pur e alcohol) Education Answer Date Recorded Are you interested in more education? Not on mia e 09/08/2022 Are you concerned about learning? Not on file 09/08/2022 No 09/08/2022 No 09/08/2022 Digital Access Answer Date Recorded No 10/09/2022 No 10/09/2022 Reliable internet access at home? Not on file 10/09/2022 Device with a working camera? Not on file Sex and Gender Information Value Date Recorded Sex Assigned at Male 07/18/2021 12:40 PM EST Legal Sex Male 12:26 PM EST Gender Identity Male 07/18/2021 12:40 PM EST Sexual Orientation Not on file Last Filed Vital Signs Vital Sign Reading Time Taken Comments Blood Pressure 152/83 07/18/2021 4:00 PM EST Pulse 59 07/18/2021 4:00 PM EST Temperature 36 C (96.8 F) 07/18/2021 12:39 PM EST Respiratory Rate 14 07/18/2021 4:00 PM EST Oxygen Saturation 100% 07/18/2021 4:00 PM EST Inhaled Oxygen Concentration - - Weight 81.6 kg (180 lb) 07/18/2021 12:39 PM EST Height 170.2 cm (5' 7 ) 07/18/2021 12:39 PM EST Body Mass Index 28.19 07/18/2021 12:39 PM EST Plan of Treatment Not on file Medical Devices Not on file Insurance MEDICARE A O MEDICARE A [facility] MEDICARE A O MEDICARE A HMO MEDICARE A [facility] HMO MEDICARE A [facility] HMO MEDICARE A [facility] HMO MEDICARE A [facility] HMO MEDICARE A [facility] HMO Care Teams Vulcanizer Operator Relationship Specialty Start Date End Date Marizol Lazaro MD [address] [place] [id number] PCP - General Internal Medicine 07/18/21 Additional Source Comments The information contained in this document represents components of the legal health record. It is not the complete legal health record.[facility]
--- OUTSIDE RECORDS SUMMARY | 2025-01-07 11:24 | XMS_ITS ---
Author Name [facility] Organization Unknown Care Team Organization Name Specialty Phone Email Start Date End [facility] Marizol Lazaro Primary Care 03/20/2022 4
== END 2025-01-07 10:46 | disposition home or self-care (01) ==
PROVIDERS: PCP Internal Medicine; Visit Provider Nurse Practitioner Family
DX: K29.00 Acute gastritis without bleeding (principal)

== ENCOUNTER → 2025-01-07 10:07 | Outpatient (BNVA) | payer MEDICARE, SELFPAY | PROVIDERS: PCP Internal Medicine; Visit Provider Nurse Practitioner Family | DX: K29.00 Acute gastritis without bleeding (principal) | CPT/HCPCS: 99212 ==

== ENCOUNTER 2025-03-11 08:51 | Outpatient (REF) | payer MEDICARE, SELFPAY ==
[2025-03-11 13:18] LABS: MANUAL DIFF FLAG NO
[2025-03-11 13:28] LABS: Hematocrit 43.9 % (42.0-52.0); Hemoglobin 14.8 g/dl (14.0-18.0); Imm Gran Abs Auto 0.03 X10*3/uL (0.00-0.03); Imm Gran Pct Auto 0.4 % (0.0-0.4); Lymphocytes Absolute Auto 1.4 X10*3/uL (1.2-4.9); Mean Corpuscular HGB Conc 33.7 g/dl (31.0-36.0); Mean Corpuscular Hemoglobin 29.4 pg (27.0-33.0); Mean Corpuscular Volume 87.1 fL (80.0-98.0); NRBC Abs Auto 0.000 X10*3/uL (0.0-0.012); NRBC Pct Auto 0.0 /100WBC (0.0-0.2); Platelet Count 254 X10*3/uL (160-400); Red Blood Count 5.04 X10*6/uL (4.60-5.80); White Blood Count 7.0 X10*3/uL (4.8-10.8)
[2025-03-11 13:33] LABS: Alanine Aminotransferase 27 U/L (0-40); Albumin Level 4.7 g/dL (3.5-5.0); Alkaline Phosphatase 81 U/L (39-117); Anion Gap 11 (12-20); Aspartate Amino Transferase 32 U/L (5-37); Blood Urea Nitrogen 15 mg/dL (9-16); Calcium 9.4 mg/dL (8.4-10.2); Carbon Dioxide 30 mmol/L (22-29); Chloride 105 mmol/L (96-108); Estimated Glomerular Filt Rate 49; Potassium 4.5 mmol/L (3.3-5.1); Sodium 141 mmol/L (135-145); Total Protein 7.4 g/dL (6.5-8.0)
[2025-03-15 07:23] LABS: Vitamin D 25-OH, D2 <4 ng/mL; Vitamin D 25-OH, D3 52 ng/mL; Vitamin D 25-OH, Total 52 ng/mL (30-100)
== END 2025-03-11 08:52 | disposition home or self-care (01) ==
LOC: HO.HKASLDS 08:51
PROVIDERS: PCP Internal Medicine; Visit Provider Student in an Organized Health Care Education/Training Program
DX: M17.12 Unilateral primary osteoarthritis, left knee (principal); M35.3 Polymyalgia rheumatica; M81.0 Age-related osteoporosis without current pathological fracture; M79.7 Fibromyalgia; E55.9 Vitamin D deficiency, unspecified; Z79.52 Long term (current) use of systemic steroids; Z79.83 Long term (current) use of bisphosphonates; Z79.899 Other long term (current) drug therapy
CPT/HCPCS: 20610; 36415; 80053; 82306; 85025; 85652; 86140; 99212; J2003; J3301

== ENCOUNTER 2025-03-11 08:51 | Outpatient (AMB) | payer MEDICARE, SELFPAY ==
--- NOTE | 2025-03-11 09:06 | A.OFFVIS_ITS ---
Vital Signs 03/11/25 09:10 Height 5 ft 6 in Weight 185 lb 10.067 oz BMI 30.0 BP 122/80 Blood Pressure Location Lt brachial Position Sitting Pulse 61 Pulse Source Pulse Oximeter Pulse Oximetry (%) 98 Oxygen Delivery Method Room Air Intake Visit Reasons: OA Intake Note: Patient presents for OA follow up. 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 - Currently also complaining of his left knee which he received an injection about a year ago for and is requesting another injection today Today - On prednisone 2.5mg and gabapentin 100mg tid - Left knee improved after steroid injection, only started hurting again about 2 weeks ago Rheumatologic History: PMR Diagnosed in 2011 and has been on varying doses of prednisone Current Rheumatology Medication(s): Prednisone 2.5mg daily Gabapentin 100mg tid [facility] Medical History (Updated 03/11/25 @ 09:28 by Lissette Man MD) Acute gastritis CKD (chronic kidney disease) stage 3, GFR 30-59 ml/min Hypertension Fibromyalgia Osteopenia DISH (diffuse idiopathic skeletal hyperostosis) Carpal tunnel syndrome on both sides Inflammatory arthritis Social History Household Members: Spouse Housing: House Are you a primary day care director to a significant other at home: No Do you presently have visiting nurse or other home services: No 75 years or older and lives alone: No Alcohol intake: never Patient Tobacco Use Status: Former Tobacco user e-Cigarette/Vaping Use: Never Used service: No Current occupational status: employed 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 Review of Systems Narrative Review of Systems Constitutional: Denies fever, chills, weight loss ENT: Denies vision changes, eye pain or eye redness, dental caries, dry mouth GI: Denies nausea, vomiting, diarrhea, abdominal pain, change in BM Pulm: Denies SOB, AMIN, hemoptysis, wheezing Cards: Denies chest pain, palpitations Skin: Denies Raynaud's, rash, nail changes, photosensitivity, SAFETY COUNCIL DIRECTOR: Denies headaches, weakness, paresthesias, recurrent falls MSK: as per HPI All other systems reviewed and are unremarkable except noted above Physical Exam Exam Exam: Vital signs reviewed Physical Examination CONSTITUITIONAL Patient alert and cooperative. Well appearing and in no apparent painful distress MSK Hands * Right Hand: Able to make a fist. No swelling or tenderness to palpation of the MCPs, PIPs or DIPs. * Left Hand: Able to make a fist. No swelling or tenderness to palpation of the MCPs, PIPs or DIPs. * Herbedens nodes noted bilaterally Wrists * Right Wrist: Full ROM to flexion and extension. No swelling or TTP * Left Wrist: Full ROM to flexion and extension. No swelling or TTP Elbows * Right Elbow: Full ROM. No swelling or TTP. No TTP of the medial epicondyle. No TTP of the lateral epicondyle * Left Elbow: Full ROM. No swelling or TTP. No TTP of the medial epicondyle. No TTP of the lateral epicondyle Shoulders * Right shoulder: No swelling noted. No TTP of the AC joint. No TTP of the subacromial bursa. No TTP of the posterior shoulder * Left shoulder: No swelling noted. No TTP of the AC joint. No TTP of the s ubacromial bursa. No TTP of the posterior shoulder * Decreased ROM bilaterally Knees * Right knee: No swelling noted. No TTP of the knee joint line. No TTP of pes anserine bursa * Left knee: No swelling noted. No TTP of the knee joint line. No TTP of pes anserine bursa. * Crepitations felt bilaterally Ankles * Right ankle: Good ankle dorsiflexion and plantar flexion. No swelling. No TTP of the ankle joint * Left ankle: Good ankle dorsiflexion and plantar flexion. No swelling. No TTP of the ankle joint Feet * Right foot: Negative squeeze test * Left foot: Negative squeeze test Tender points? * No tenderness to palpation of the bilateral trapezius, supraspinatus, anterior costochondral junctions, bilateral suboccipital muscle insertions SKIN No rashes Vital Signs: Last Vital Signs Pulse 61 03/11/25 09:10 BP 122/80 03/11/25 09:10 Pulse Ox 98 03/11/25 09:10 Oxygen Delivery Method Room Air 03/11/25 09:10 BMI result Body Mass Index 30.0 Office Procedures AMB Joint Injection/Aspiration Joint Injection/Aspiration Details: Procedure was explained to the patient and informed consent was obtained. ? Risks associated with the procedure were discussed with the patient including but not limited to bleeding, infection, drug reactions and reactions to the topical anesthetic. Patient made aware of signs to look out for infectious complications. The area of interest was identified and confirmed with patient. ?This was subsequently cleaned with chlorhexidine x 2. ? The area was then anesthetized using ethyl chloride spray. 40 mg Kenalog with 1 cc 1% lidocaine was injected without issue. ?Minimal to no bleeding. ?Patient tolerated procedure. Primary Site: left knee Prep: site was prepped using aseptic technique and ethochloride spray was applied Injected: 40 mg of, Kenalog, with 1 mL of, 1% plain lidocaine and in the joint Approach Used: anterior Procedure: The patient tolerated the procedure well Coding 33711 - Large joint Procedure code (CPT) selection complete Office Meds lidocaine (PF) 10 mg/mL (1 %) injection solution Performing Provider: Lissette Man MD Performing Location: [facility] Administered by: Elissa Izquierdo RN on 03/11/25 10:26 Dose Route Admin Location Dispensed Lot Number Expiration Date [facility] Supervisor In Charge 1 mL intra-articular left knee 2 mL [id number] 10/10/26 12794-094-64 [facility] [employer] Total Dispensed Waste 2 mL 50 % Kenalog 40 mg/mL suspension for injection Performing Provider: Lissette Man MD Performing Location: [facility] Administered by: Elissa Izquierdo RN on 03/11/25 10:26 Dose Route Admin Location Dispensed Lot Number Expiration Date [facility] Supervisor In Charge 40 mg intra-articular left knee 1 mL [id number] 11/09/26 [address]-8 [employer] Total Dispensed Waste 1 mL 0 % Results Reviewed Results Reviewed: Laboratory Tests 08/21/24 08:22 WBC 7.3 RBC 4.84 Hgb 14.2 Hct 39.7 L Plt Count 231 ESR 6 Sodium 142 Potassium 3.9 Chloride 108 Carbon Dioxide 29 BUN 17 H Creatinine 1.22 AST 22 ALT 19 Alkaline Phosphatase 82 C-Reactive Protein 0.10 Total Protein 6.6 Albumin 4.0 Immunology labs 01/22/24 09:00 Rheumatoid Factor < 13.0 Cycl Citrul Peptide IgG <16 DUNIA Screen NEGATIVE HLA-B27 Negative XR Spine: Thoracic and Lumbar 01/2024 FINDINGS: Thoracic: Hyperkyphosis of the thoracic spine. Vertebral body heights appear normal. No acute fractures are identified. There is solid hypertrophic osseous bridging across the vertebral bodies mid thoracic spine from the levels of T3-T12. Minimal right convex curvature. No spondylolisthesis. Paraspinal soft tissues are unremarkable. Calcific atherosclerosis in the thoracic aorta. Lumbar: There are 6 lumbar-type vertebral bodies with a transitional lumbosacral level which can be referred to as L6 or S1. There is grade 1 anterolisthesis of L4 on L5 and L5 on S1 (9 mm and 6 mm). Marked facet arthropathy is present in the lower lumbar spine. There is fnmtjrlv-wd-athqjn degenerative disc disease at L4-L5 and L5-S1. More acsl-wc-bfdzikwv degenerative disc disease at other levels. No osseous lesions. Intervertebral body heights are normal. No fractures. Mild osteoarthritis in the SI joints. Gallstone is noted in the right upper quadrant, measuring 2 cm in diameter. IMPRESSION: 1. No acute fractures in the thoracic or lumbar spine. 2. Hyperkyphosis of the thoracic spine with solid hypertrophic osseous bridging across the vertebral bodies from T3-T12, most consistent with diffuse idiopathic skeletal hyperostosis (DISH). 3. Grade 1 anterolisthesis of L4 on L5 and L5 on S1 with marked facet arthropathy in the lower lumbar spine. 4. Vkbdlywm-yd-gujych degenerative disc disease at L4-L5 and L5-S1. 5. Cholelithiasis. XR Bilateral Hands/Wrists 01/2024 FINDINGS: RIGHT HAND/WRIST: Hocvsasa-hf-imrqli first CMC osteoarthritis with joint space narrowing, marginal osteophytes, and subchondral cystic change. More moderate osteoarthritis at the thumb and long finger MCP joints as well as the thumb interphalangeal joint and multiple DIP joints. More mild osteoarthritis at the triscaphe joint and other interphalangeal joints. No fractures. Bone mineralization is normal. No erosions or significant periostitis. Soft tissues are unremarkable. No chondrocalcinosis. LEFT HAND/WRIST: Multifocal osteoarthritis is moderate in severity at the first CMC, first through third MCP, thumb interphalangeal, and long finger DIP joints. More mild multifocal osteoarthritis is present in other interphalangeal joints, the triscaphe joint, and the radiocarpal joint. No erosions. Bone mineralization is normal. Soft tissues are unremarkable. No chondrocalcinosis. No fractures. IMPRESSION: Multifocal osteoarthritis in both hands and wrists, most notably at the first CMC joints, right greater than left. No evidence of inflammatory arthropathy. DEXA 01/2024 FINDINGS: AP SPINE L2-L3 (excluding L1 and L4): The data of L1-L4 has been changed to exclude the L1 and L4 vertebral bodies, because degenerative sclerosis at these levels may cause overestimation of lumbar spine density. BMD 1.178 g/cm2, Z-score 0.0, T-score -0.5, normal. LEFT FEMUR, NECK: BMD 0.878 g/cm2, Z-score -0.2, T-score -1.5, osteopenia. LEFT FEMUR, TOTAL: BMD 0.928 g/cm2, Z-score -0.4, T-score -1.2, osteopenia. Assessment & Plan Assessment & Plan (1) Generalized osteoarthritis: Code(s): M15.9 - Polyosteoarthritis, unspecified Category: Medical Plan: #Polyarticular OA Patient is a 74-year-old male with polyarticular osteoarthritis affecting his knees, thoracic and lumbar spine also complicated by dish here today for follow up. Currently stable on his current medication of prednisone 2.5 mg daily and gabapentin 100 mg t.i.d.. Status post steroid injection to the left knee. Will increase gabapentin and start to taper the prednisone further Plan - Prednisone 2.5mg alternating with 1.75mg (1/2 tablet) - Gabapentin 300mg at night and 100mg in the AM and Afternoon - Tizanidine 2mg nightly for muscle spasm - s/p steroid injection to the left knee today - Labs today: CBC, CMP, ESR, CRP - RTC 6 months - Labs before visit: CBC, CMP, ESR, CRP (2) PMR (polymyalgia rheumatica): Code(s): M35.3 - Polymyalgia rheumatica Plan: #PMR Patient with hx of PMR and has been on steroids for a long period of time Will need to wean patient off especially in the setting of osteoporosis If not able to wean will need to consider a DMARD (3) Osteopenia: Comment: October 2012 BMD FRAX estimate: 32% for fracture, 3.5% for hip fracture over 10 years Alendronate started 10/23, taken through October 2018. Restarted 09/2021 11.2% increase in bone density measured at the lumbar spine. 07/2017 DEXA: 3.6% increase in bone density is measured at the left hip compared to 09/15/2012. 10/2021: bone density dropped again, alendronate restarted DEXA 01/2024. AP Spine -0.5, Left femur neck -1.5, Left femur total -1.2 Code(s): M85.80 - Other specified disorders of bone density and structure, unspecified site Category: Medical Qualifiers: Osteopenia location: multiple sites Qualified Code(s): M85.89 - Other specified disorders of bone density and structure, multiple sites Plan: #Osteopenia Patient with a longstanding history of osteopenia on an off alendronate. Currently on alendronate with most recent bone density in 2023 only mild osteopenia of the hip with normal AP spine. 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: Code(s): Z79.52 - tank terminal gauger (current) use of systemic steroids Category: Medical Plan: #Long-term Use of Steroids Discussed with patient the risks and benefits of steroid for managing the rheumatic condition Benefits include: - Reduced pain, improved mobility, increased participation in activities, and decreased progression of disease Risks include: - GI upset, potential ultrasound worsening or formation (especially in patients > 65 years old), elevated blood pressure/worsening hypertension, elevated blood sugar/worsening diabetes control, worsening of bone density, elevated lipids/worsening triglycerides, cataract formation, weight gain Recommended using proton pump inhibitors (PPIs) for the duration of steroid use to reduce the risk of gastric ulcers and vitamin-D daily to reduce the risk of osteoporosis Labs checked: ?A1c, T spot, hepatitis-B and C serologies Pneumocystis jiroveci prophylaxis: ?Patient with risk factors including steroids greater than 50 mg for more than 30 days, age greater than 60 years, and lung involvement from underlying rheumatic disease requires prophylaxis and will be given so (5) Encounter for ongoing osteoporosis therapy, bisphosphonates: Code(s): M81.0 - Age-related osteoporosis without current pathological fracture; Z79.83 - snf (current) use of bisphosphonates Plan: #Long-term Use of Bisphosphonates Risks and benefits of bisphosphonates in the management of osteoporosis Benefits include improved bone density, decreased fracture risk Risks include atypical femoral fractures, GI upset, esophageal strictures Contraindicated in patients with a creatinine clearance < 30 to 35 ml/min Keep vitamin-D at least 35 ng/mL Plan I spent 35 minutes reviewing the record and labs, taking a history, examining the patient, discussing the treatment plan, ordering diagnostic work up and documenting in the medical record Orders: Orders Erythrocyte Sedimentation Rate 6 Months Z79.899 - Other senior living (current) drug therapy Vitamin D 25-OH Total 6 Months Z79.899 - Other tank terminal gauger (current) drug therapy AMB Joint Injection/Aspiration Today M17.12 - Unilateral primary osteoarthritis, left knee Complete Blood Count Auto Diff 6 Months Z79.899 - Other tank terminal gauger (current) drug therapy Comprehensive Met. Panel 6 Months Z79.899 - Other tank terminal gauger (current) drug therapy C Reactive Protein 6 Months Z79.899 - Other tank terminal gauger (current) drug therapy Medications: New gabapentin 300 mg PO BEDTIME 90 caps 1RF M15.9 - Polyosteoarthritis, unspecified Changed From gabapentin 100 mg PO TID 270 caps 3RF M79.7 - Fibromyalgia To gabapentin In the AM and in the afternoon 100 mg PO BID 270 caps 1RF M79.7 - Fibromyalgia Refilled tizanidine 2 mg PO BEDTIME PRN 30 tabs 11RF for muscle spasm M79.7 - Fibromyalgia Coding Level of Care Code Est Pt Level 4 (95148) Complex EM visit Add On G2211 Diagnoses Generalized osteoarthritis M15.9 PMR (polymyalgia rheumatica) M35.3 Osteopenia of multiple sites M85.89 Osteopenia location: multiple sites 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
[2025-03-11 09:10] VITALS: BP 122/80; PULSE 61; O2SAT 98
--- OUTSIDE RECORDS SUMMARY | 2025-03-11 09:49 | XMS_ITS | Clinical Summary ---
Author Organization [facility] Address [address] [place] [address] Phone Care Team Providers Care Brim Pouncing Machine Operator Name Role Phone Marizol Lazaro MD Primary Care Provider [phone] Allergies Active Allergy Reactions Criticality Noted Date [...] BY MOUTH ONCE DAILY 90 tablet 1 01/18/2025 Active Active Problems Problem Noted Date Diagnosed [...] CT 09/21. Tiny right renal mass Immunizations Immunization Administration Dates Next Due Influenza Quadravalent, MDCK [...] ed Within the last 3 months, ho w many times did you visit the emergency [...] for your loved ones. For example, child and family counselor or elderly care for an older adult? [...] Date Recorded What is your living situation? Unrecognized valu e 11/02/2024 Sex and Gender Information Value Date [...] 4:30 PM EST Office Visit Adult Medicine [facility] [address] [place] [address] Judith Valdez PA [address] [place], [place] Health Maintenance Due Date Last Done Comments Zoster Vaccines (1 of 2) 03/19/2016 01/23/2016 COVID-19 Vaccine ( season) 2025 03/17/2021, 07/23/2020, 06/25/2020 Influenza Vaccine (#1) 2025 [...] Procedure Name Priority Date/Time Associated Diagnosis Comments BASIC METABOLIC PANEL Routine 11/02/2024 9:06 AM EDT Primary hypertension Stage 3a chronic kidney disease (CMS/HCC V24, CMS/HCC V28) LIPID PANEL WITH REFLEX TO DIRECT LDL Routine 11/02/2024 9:06 AM EDT Lipid screening HM FALLS RISK ASSESSMENT Routine 01/22/2024 DEPRESSION SCREENING Routine 11/01/2023 COLONOSCOPY Routine 09/20/2021 HEPATITIS C SCREENING Routine 11/18/2014 from Last 3 Months or Most Recently Relevant to Health Maintenance Results * Lipid panel with reflex to direct LDL (11/02/2024 9:06 AM EDT) Cholesterol 167 0 - 200 mg/dL LAB CHEMISTRY METHOD 11/02/2024 6:12 PM EDT [facility] Triglycerides 80 0 - 150 mg/dL LAB CHEMISTRY METHOD 11/02/2024 6:12 PM EDT [facility] HDL 67 >=40 mg/dL LAB CHEMISTRY METHOD 11/02/2024 6:12 PM EDT [facility] LDL Calculated 84 0 - 100 mg/dL LAB CHEMISTRY METHOD 11/02/2024 6:12 PM EDT [facility] VLDL Cholesterol Gilberto 16 mg/dL LAB CHEMISTRY METHOD 11/02/2024 6:12 PM EDT [facility] Non HDL Chol. (LDL+VLDL) 100 <145 mg/dL LAB CHEMISTRY METHOD 11/02/2024 6:12 PM EDT [facility] Chol/HDL Ratio 2.5 0.0 - 4.4 LAB CHEMISTRY METHOD 11/02/2024 6:12 PM EDT [facility] Blood Venous blood specimen / Unknown Venipuncture / Unknown 11/02/2024 9:06 AM EDT 11/02/2024 9:06 AM EDT us Judith HARVEY LAB BLOOD ORDERABLES Final Re sult [facility] [address] [place] [address], * (ABNORMAL) Basic metabolic panel (11/02/2024 9:06 AM EDT) Sodium 142 133 - 145 mmol/L LAB CHEMISTRY METHOD 11/02/2024 6:12 PM [facility] Potassium 4.3 3.5 - 5.5 mmol/L LAB CHEMISTRY METHOD 11/02/2024 6:12 PM [facility] Chloride 108 96 - 110 mmol/L LAB CHEMISTRY METHOD 11/02/2024 6:12 PM [facility] CO2 27 21 - 32 mmol/L LAB CHEMISTRY METHOD 11/02/2024 6:12 PM [facility] Anion Gap 7 3 - 11 LAB CHEMISTRY METHOD 11/02/2024 6:12 PM [facility] Glucose 135(H) 70 - 100 mg/dL LAB CHEMISTRY METHOD 11/02/2024 6:12 PM [facility] BUN 14 5 - 25 mg/dL LAB CHEMISTRY METHOD 11/02/2024 6:12 PM [facility] Creatinine 1.44(H) 0.70 - 1.30 mg/dL LAB CHEMISTRY METHOD 11/02/2024 6:12 PM [facility] eGFR 52(L) >=60 mL/min/1. 73m2 LAB CHEMISTRY METHOD 11/02/2024 6:12 PM [facility] Comment:Calculation based on the Chronic Kidney Disease Epidemiology Collaboration (CKD-EPI) equation refit without adjustment for race. BUN/Creatinine Ratio 9.7 LAB CHEMISTRY METHOD 11/02/2024 6:12 PM [facility] Calcium 8.8 8.5 - 10.5 mg/dL LAB CHEMISTRY METHOD 11/02/2024 6:12 PM [facility] Blood Venous blood specimen / Unknown Venipuncture / Unknown 11/02/2024 9:06 AM EDT 11/02/2024 9:06 AM EDT Marizol Lazaro MD LAB BLOOD ORDERABLES Final Resul t [facility] ([facility]) [facility] [address] [place] [address], [place] [phone] * Falls Risk Assessment (01/22/2024) Pathologist [facility] Falls Risk Assessment Abstracted Historical Provider HEALTH MAINTENANCE Final Result * Depression Screening (11/01/2023) Pathologist [facility] Depression Screening Abstracted Historical Provider HEALTH MAINTENANCE Final Result * Colonoscopy (09/20/2021) [facility] Colonoscopy No Interpretation , Abstracted Anatomical Region Laterality Modality Other Historical Provider HEALTH MAINTENANCE Final Result * Hepatitis C Screening (11/18/2014) Pathologist [facility] Hepatitis C Screening Abstracted Historical Provider HEALTH MAINTENANCE Final Result from Last 3 Months or Most Recently Relevant to Health Maintenance Insurance MEDICARE [employer] [place] Care Teams Brim Pouncing Machine Operator Relationship Specialty Start Date End Date Marizol Lazaro MD [address] [place] [phone] PCP - General 05/29/05
--- OUTSIDE RECORDS SUMMARY | 2025-03-11 09:49 | XMS_ITS | Clinical Summary ---
Author Organization [facility] Address [address] [facility] [address] [place] [phone] Phone Care Team Providers Care Last Sawyer Name Role Phone Marizol Lazaro MD Primary Care Provider [phone] Allergies Active Allergy Reactions Criticality Noted Date [...] file Insurance MEDICARE A O [facility]IC[facility] MEDICARE A HMO MEDICARE A [facility] HMO MEDICARE A [facility] HMO MEDICARE A [facility] MEDICARE A [facility] HMO MEDICARE A [facility] HMO Care Teams Last Sawyer Relationship Specialty Start Date End Date Marizol Lazaro MD [address] [place] [id number] PCP - General Internal Medicine 07/18/21 Additional Source Comments The information contained in this document represents components of the legal health record. It is not the complete legal health record.[facility]
== END 2025-03-11 09:55 | disposition home or self-care (01) ==
LOC: HO.RHES 08:52
PROVIDERS: PCP Internal Medicine; Visit Provider Student in an Organized Health Care Education/Training Program
DX: M15.0 Primary generalized (osteo)arthritis (principal); M25.562 Pain in left knee; M35.3 Polymyalgia rheumatica; M85.89 Other specified disorders of bone density and structure, multiple sites; Z79.52 Long term (current) use of systemic steroids; Z79.83 Long term (current) use of bisphosphonates
CPT/HCPCS: 20610; 99214